=== PATIENT | female | born 1965 | race Caucasian/White ===

== ENCOUNTER → 2019-06-26 12:58 | Outpatient (CLI) | payer OTHER, SELFPAY ==
--- NOTE | 2019-06-26 13:03 | MR_ITS ---
PROCEDURE: MR HIP LT WO CON CLINICAL INDICATION: LEFT HIP PAIN COMPARISON: No exams were available for comparison TECHNIQUE: Routine multiplanar multi echo sequences are performed without gadolinium enhancement. FINDINGS: The left hip has an unremarkable appearance. No fracture or dislocation or bone marrow edema. No evidence of avascular necrosis. No significant effusion. No bony destructive process or significant arthritic change. No obvious soft tissue mass. Unremarkable appearing anterior labrum IMPRESSION: Negative MRI of the left hip Dictated by: Benjamin Granados MD 06/29/2019 12:55 Electronically signed by Benjamin Granados MD in [place] 06/29/2019 12:55
== END ==
PROVIDERS: PCP Internal Medicine; Visit Provider Internal Medicine
DX: M25.552 Pain in left hip (principal)
CPT/HCPCS: 73721

== ENCOUNTER → 2019-07-22 13:01 | Outpatient (CLI) | payer OTHER, SELFPAY ==
--- NOTE | 2019-07-22 13:13 | MR_ITS ---
PROCEDURE: MR LUMBAR SPINE WO CON CLINICAL INDICATION: LOW BACK PAIN, LEFT RADICULOPATHY Low back pain, left hip and leg pain, numbness and tingling COMPARISON: None TECHNIQUE: Standard multiplanar multiecho sequences are performed without contrast. 3-D MIP and myelographic images are also rendered and reviewed FINDINGS: The spinal cord ends at the L1 level. There is normal alignment. L1-L2: There is mild bulging disc in the right foraminal and lateral aspect of the disc causing mild right lateral recess and foraminal narrowing. L2-L3: Mild bulging disc which is eccentric toward the right in the foraminal and right lateral region causing right lateral recess and mild right foraminal narrowing. There is mild degenerative disc disease at this level. L3-L4: T1 and T2 hyperintensity is present along the L3 vertebral body anteriorly measuring 1.8 cm consistent with a lipid rich hemangioma. Minimal bulging disc which is slightly eccentric toward the left with mild left lateral recess and foraminal narrowing. L4-5: Mild concentric bulging disc along with moderate facet and ligamentum hypertrophy. There is a small/6 mm rounded T2 hyperintense focus along the medial aspect of the left facet joint consistent with a small synovial cyst. This is causing moderate left lateral recess narrowing and there is moderate bilateral foraminal narrowing from the facet hypertrophy. There is transverse narrowing of the canal at this level at 7 mm. There is impingement upon the left L5 nerve root. L5-S1: There is degenerative disc disease with bulging disc and a small broad-based central disc protrusion slightly eccentric toward the right. There is mild bilateral lateral recess narrowing slightly greater on the right with moderate bilateral foraminal narrowing. No extruded herniated disc. IMPRESSION: There is mild multilevel lumbar spondylosis with bulging disc along with facet and ligamentum hypertrophy with resulting lateral recess and foraminal narrowing. Please see above for detailed description at each level. There is transverse canal stenosis at L4-5 with moderate bilateral facet hypertrophic change along with a left-sided synovial cyst causing moderate left lateral recess narrowing and impingement upon the left L5 nerve root. No extruded herniated disc evident Dictated by: Benjamin Granados MD 07/23/2019 11:32 Electronically signed by Benjamin Granados MD in [place] 07/23/2019 11:32
== END ==
PROVIDERS: PCP Internal Medicine; Visit Provider Internal Medicine
DX: M54.16 Radiculopathy, lumbar region; M54.5 Low back pain
CPT/HCPCS: 72148; 76376

== ENCOUNTER → 2019-07-24 13:00 | Outpatient (CLI) | payer OTHER, SELFPAY ==
--- NOTE | 2019-07-24 13:02 | MR_ITS ---
PROCEDURE: MR CERVICAL SPINE WO CON CLINICAL INDICATION: NECK PAIN Neck pain, right shoulder and arm pain with numbness the the the the COMPARISON: No exams were available for comparison TECHNIQUE: Standard multiplanar multiecho sequences are performed without contrast. 3-D MIP and myelographic images are also rendered and reviewed FINDINGS: There is straightening of the cervical lordosis. The cranial cervical junction has an unremarkable appearance. C2-C3: Minimal bulging disc. C3-C4: Unremarkable. C4-C5: Minimal bulging disc with a broad-based right paracentral and foraminal disc protrusion causing mild right lateral recess and foraminal narrowing. C5-C6: Degenerate disc disease with bulging disc with a small broad-based central disc protrusion abutting but not effacing the spinal cord. There is canal stenosis at 9 mm. C6-C7: Degenerate disc disease with mild bulging disc. There is mild left-sided foraminal narrowing from the bulging disc and facet hypertrophic change C7-T1: Unremarkable. IMPRESSION: 1. Mild multilevel cervical spondylosis. Please see above for detailed description at each level. 2. C4-C5: Minimal bulging disc with a broad-based right paracentral and foraminal disc protrusion causing mild right lateral recess and foraminal narrowing. 3. C5-C6: Degenerate disc disease with bulging disc with a small broad-based central disc protrusion abutting but not effacing the spinal cord. There is canal stenosis at 9 mm. 4. C6-C7: Degenerate disc disease with mild bulging disc. There is mild left-sided foraminal narrowing from the bulging disc and facet hypertrophic change 5. No extruded herniated disc apparent Dictated by: Benjamin Granados MD 07/25/2019 13:05 Electronically signed by Benjamin Granados MD in [place] 07/25/2019 13:05
== END ==
PROVIDERS: PCP Internal Medicine; Visit Provider Internal Medicine
DX: M54.2 Cervicalgia (principal)
CPT/HCPCS: 72141; 76376

== ENCOUNTER → 2020-04-16 15:19 | Outpatient (CLI) | payer OTHER, SELFPAY ==
[2020-04-18 13:00] LABS: Covid-19 Nasal PCR Sendout Lex Not Detected
== END ==
PROVIDERS: PCP Family Medicine; Visit Provider Family Medicine
DX: Z03.818 Encounter for observation for suspected exposure to other biological agents ruled out (principal)
CPT/HCPCS: U0004

== ENCOUNTER → 2021-06-16 17:50 | Outpatient (CLI) | payer MEDICARE, OTHER, SELFPAY ==
[2021-06-16 19:16] LABS: Coronavirus 19, PCR Not Detected (NotDetected); Influenza A, PCR Not Detected (NotDetected); Influenza B, PCR Not Detected (NotDetected)
== END ==
PROVIDERS: Visit Provider Nurse Practitioner
DX: Z20.822 Contact with and (suspected) exposure to COVID-19 (principal)
CPT/HCPCS: C9803; U0003; U0005

== ENCOUNTER 2021-08-27 19:22 | Emergency (ER) | payer OTHER, SELFPAY ==
[2021-08-27 19:25] VITALS: BP 172/89; PULSE 103; RESP 20; TEMP 36.8; O2SAT 98; BMI 29.9
--- NOTE | 2021-08-27 19:41 | HMH.EDUTC ---
[facility] Disposition Clinical Impression: Impetigo Contact dermatitis Qualifiers: Contact dermatitis type: unspecified Contact dermatitis trigger: unspecified trigger Qualified Code(s): L25.9 - Unspecified contact dermatitis, unspecified cause Disposition: Home, Self-Care Condition on Discharge: Good Instructions: DI for Contact Dermatitis Additional Instructions: Try to avoid contact with the offending substance, if you can identify it. Don't start the oral steroids until tomorrow. Follow up with your regular doctor. GO TO THE ER FOR ANY WORSENING SYMPTOMS OR CONCERNS Prescriptions: Mupirocin [Bactroban 2% Ointment 22gm tube] 1 applicatio TP TID 7 Days #1 gm Transmission Status: Received by [facility] cephALEXin [cephALEXin 500mg capsule] 500 mg PO Q6H 10 Days #40 cap Transmission Status: Received by [facility] Clotrimazole 1 applicatio TP BID 14 Days #15 gm Transmission Status: Received by [facility] Fluconazole [Diflucan 150mg tab] 150 mg PO ONCE #1 tab Transmission Status: Received by [facility] methylPREDNISolone [Medrol] 4 mg PO DIRECTED 6 Days #21 packet Transmission Status: Received by [facility] Referrals: Provider,Referral, MD [Primary Care Provider] - Time of Disposition: 20:22 Medical Decision Making - Medical Records Medical records reviewed: No: I reviewed the patient's medical records. - [place] Inquiry Pt receiving controlled substance: No Vital Signs: 08/27/21 19:25 08/27/21 20:19 Temperature 98.3 F 98.3 F Temperature Source Oral Pulse Rate 103 H Pulse Rate [Left Brachial] 103 H Respiratory Rate 20 20 Blood Pressure 172/89 H Blood Pressure [Left Arm] 172/89 H Blood Pressure Mean [Left Arm] 116 Blood Pressure Source [Left Arm] Automatic Cuff Blood Pressure Position [Left Arm] Sitting 02 Sat by Pulse Oximetry 98 Oxygen Delivery Method Room Air - Lab Data Lab results reviewed: Yes: I reviewed the patient's lab results. Orders (Tests/Meds): ED MEDICATIONS Discontinued Medications Generic Name Dose Route Start Last Admin Trade Name Freq PRN Reason Stop Dose Admin Ceftriaxone Sodium 1 gm 08/27/21 20:06 08/27/21 20:15 Ceftriaxone 1gm Vial IM 08/27/21 20:07 1 gm ONCE ONE Administration Lidocaine HCl 0 ml 08/27/21 20:06 08/27/21 20:15 Lidocaine 1% 5ml Pf Vial IM 08/27/21 20:07 2 ml ONCE ONE Administration Methylprednisolone Sodium Succinate 125 mg 08/27/21 20:06 08/27/21 20:15 Methylprednisolone Sod Succ 125mg Vial IM 08/27/21 20:07 125 mg ONCE ONE Administration ORDERS Category Date Time Status Wound Culture and Gram Stain Stat Micro 08/27/21 19:42 Results [facility] HPI - General Stated complaint: rash on face Time Seen by Provider: 08/27/21 19:41 - History of Present Illness Provider Complaint: She states that for the past 2 days, she has has irritation and a rash on her face. She states that it was itching and feeling very uncomfortable. Yesterday she began to have crusted areas to break out on her chin and her right cheek. She did wear make up right before her symptoms began. She rarely wears make up. She denies any fever or chills. But, she does state that the skin on her face is very uncomfortable. She is worried that she has ringworm on her face. She denies any lesions elsewhere on her and she denies any history of having ringworm. - Related Data Previous Rx's Medication Instructions Recorded Clotrimazole 1 applicatio TP BID 14 Days #15 gm 08/27/21 Fluconazole [Diflucan 150mg tab] 150 mg PO ONCE #1 tab 08/27/21 Mupirocin [Bactroban 2% Ointment 1 applicatio TP TID 7 Days #1 gm 08/27/21 22gm tube] cephALEXin [cephALEXin 500mg 500 mg PO Q6H 10 Days #40 cap 08/27/21 capsule] methylPREDNISolone [Medrol] 4 mg PO DIRECTED 6 Days #21 08/27/21 packet Allergies Allergy/AdvReac Type Severity Reaction Status Date
[2021-08-27 20:19] VITALS: BP 172/89; PULSE 103; RESP 20; TEMP 36.8; O2SAT 98
== END 2021-08-27 20:40 | disposition home or self-care (01) ==
PROVIDERS: Emergency Provider Nurse Practitioner Family
DX: L23.2 Allergic contact dermatitis due to cosmetics (principal); L01.00 Impetigo, unspecified
CPT/HCPCS: 87070; 87077; 87186; 87205; 96372; 99202; G0463

== ENCOUNTER → 2021-09-07 17:33 | Outpatient (CLI) | payer OTHER, SELFPAY ==
[2021-09-07 17:35] LABS: Coronavirus 19, PCR Not Detected (NotDetected); Influenza A, PCR Not Detected (NotDetected); Influenza B, PCR Not Detected (NotDetected)
== END ==
PROVIDERS: Visit Provider Nurse Practitioner Family
DX: Z20.822 Contact with and (suspected) exposure to COVID-19 (principal)
CPT/HCPCS: C9803; U0003; U0005

== ENCOUNTER 2021-09-24 16:02 | Emergency (ER) | payer OTHER, SELFPAY ==
[2021-09-24 16:03] VITALS: BP 163/99; PULSE 119; RESP 18; TEMP 36.6; O2SAT 98; BMI 29.1
--- NOTE | 2021-09-24 17:03 | HMH.EDGENADL ---
ED Disposition Clinical Impression: Contact dermatitis Disposition: Home, Self-Care Condition on Discharge: Fair Instructions: DI for Skin Abscess Prescriptions: cephALEXin [cephALEXin 500mg capsule] 500 mg PO Q6H 10 Days #40 cap Transmission Status: Received by [facility] Ketoconazole 1 applicatio TP DIRECTED #50 g Transmission Status: Received by [facility] methylPREDNISolone [Medrol] 4 mg PO DIRECTED 6 Days #21 packet Transmission Status: Received by [facility] Referrals: Emily Downing [Primary Care Provider] - - Critical Care Critical Care Time: No Attestation: On 09/24/21, the high probability of a clinically significant, sudden or life threatening deterioration of the following system(s) required my full and direct attention, intervention and personal management. The time I documented below is in addition to time spent performing reported procedures but includes the following listed in this critical care notation. Medical Decision Making - Medical Records Medical records reviewed: Yes: I reviewed the patient's medical records. - [place] Inquiry Pt receiving controlled substance: No T[place] was queried for this patient: No Vital Signs: 09/24/21 16:03 09/24/21 17:18 Temperature 98 F 98 F Temperature Source Oral Oral Pulse Rate 119 H Pulse Rate [Radial] 119 H Respiratory Rate 18 16 Blood Pressure 163/99 H Blood Pressure [Right Arm] 163/99 H Blood Pressure Mean [Right Arm] 120 Blood Pressure Position Sitting 02 Sat by Pulse Oximetry 98 Oxygen Delivery Method Room Air Room Air - Lab Data Lab results reviewed: Yes: I reviewed the patient's lab results. Medical Decision Narrative: Patient is a 55-year-old female with multiple psychiatric issues including depression, anxiety, PTSD on multiple medications presenting to the ED for evaluation of a rash. Patient is awake, alert. Patient has rapid speech, she is fixated on her rash. Patient believes that she has worms crawling on her skin that are causing this rash. It has been evaluated by multiple providers regarding the rash all of which have noted the patient might have a underlying behavioral, psychiatric issue. Patient states that she has been under significant distress. He members are also very distressed regarding, fixated the patient is with a rash and has been causing physical and superficial trauma from rubbing her skin so much. At this point patient does not have any suicidal ideations, homicidal ideations. Patient has been making capacity therefore cannot be placed on an involuntary hold. At this point I do not believe that any lab work is necessary. After much discussion regarding having dermatology evaluate patient's rash and along with having the patient to be evaluated by behavioral health services patient is adamant that she would like to leave. Much discussion was had with the family members patient who ultimately agreed to go or [place] where she can be evaluated by behavioral health services. Family members have agreed to take the patient. Point patient would like to be discharged. Patient is given strict return precautions and follow-up instructions. General Adult HPI - General Stated complaint: rash Time Seen by Provider: 09/24/21 17:03 Source of Information: Patient, Spouse, Relative Limitations: No Limitations - History of Present Illness HPI narrative: Patient is a 55-year-old female with past medical history of psychiatric disorders including depression, anxiety, PTSD presenting to the ED signs of a rash. Patient states that she has had a rash on her face since . Patient states that the rash has significantly worsened. Patient states that she has seen multiple providers including the urgent care provider here multiple times and has been given antibacterial ointment, antifungal ointment, steroid ointment and now Aquaphor. Patient states that the rash is gone to the poi
[2021-09-24 17:18] VITALS: BP 163/99; PULSE 119; RESP 16; TEMP 36.6; O2SAT 98
== END 2021-09-24 17:20 | disposition home or self-care (01) ==
PROVIDERS: Emergency Provider Emergency Medicine; PCP Internal Medicine
DX: L25.9 Unspecified contact dermatitis, unspecified cause (principal); F41.8 Other specified anxiety disorders; F43.12 Post-traumatic stress disorder, chronic
CPT/HCPCS: 99281

== ENCOUNTER 2023-07-31 18:52 | Inpatient (IN) | payer MEDICARE, OTHER, SELFPAY ==
[2023-07-31] VITALS (13 sets, daily range): BP systolic 128–183; BP diastolic 77–113; PULSE 84–100; RESP 15–21; TEMP 36.6; O2SAT 93–98; BMI 27.1
--- NOTE | 2023-07-31 19:00 | PC.NURSE ---
Rounded on patient; call light within reach
--- NOTE | 2023-07-31 19:31 | CT_ITS ---
PROCEDURE INFORMATION: Exam: CT Abdomen And Pelvis With Contrast Exam date and time: 07/31/2023 8:12 PM Age: 57 years old Clinical indication: Abdominal pain; Additional info: Lower abd pain and ttp TECHNIQUE: Imaging protocol: Computed tomography of the abdomen and pelvis with contrast. Radiation optimization: All CT scans at this facility use at least one of these dose optimization techniques: automated exposure control; mA and/or kV adjustment per patient size (includes targeted exams where dose is matched to clinical indication); or iterative reconstruction. Contrast material: ISOVUE; Contrast volume: 75 ml; Contrast route: IV; REPORTING DATA: Count of CT and Cardiac NM exams in prior 12 months: This patient has received 0 known CTs and 0 known cardiac nuclear medicine studies in the 12 months prior to the current study. COMPARISON: No relevant prior studies available. FINDINGS: Lungs: Minimal linear atelectasis or scarring at the left lung base. Small calcified granulomas at both lung bases. Liver: Normal liver. Gallbladder and bile ducts: A couple of questionable tiny gallstones versus polyps. No evidence of acute cholecystitis or biliary dilatation. Pancreas: Normal pancreas. No ductal dilation. Spleen: Normal spleen. No splenomegaly. Adrenal glands: Adrenal glands are normal. Kidneys and ureters: Normal kidneys. No hydronephrosis. No calculus. Stomach and bowel: Thickening of the sigmoid colon with pericolic inflammation, most consistent with acute diverticulitis. Multiple fluid-filled loops of small bowel. Appendix: No evidence of appendicitis. Intraperitoneal space: Scattered small amounts of free air, with largest collection near the sigmoid diverticulitis. Small irregular fluid collections in the pelvis, with largest pocket measuring about 4 x 4.5 cm on axial imaging, with incomplete peripheral enhancement. Vasculature: No abdominal aortic aneurysm or dissection. Portal vein and mesenteric vessels appear grossly patent. Lymph nodes: No adenopathy. Urinary bladder: Normal urinary bladder. Reproductive: Status post hysterectomy. Bones/joints: No acute osseous abnormality or evidence of osseous metastatic disease. Soft tissues: Unremarkable. IMPRESSION: 1. Thickening of the sigmoid colon with pericolic inflammation, most consistent with acute diverticulitis. As an underlying malignancy cannot be entirely excluded, a follow-up examination after a course of treatment is recommended if clinically warranted. 2. Scattered small amounts of free air, with largest collection near the sigmoid diverticulitis. Suspect perforated diverticulitis. 3. Small irregular fluid collections in the pelvis, with largest pocket measuring about 4 x 4.5 cm on axial imaging, with incomplete peripheral enhancement. While not quite a mature abscess yet, suspect that these are developing abscesses. 4. Multiple fluid-filled loops of small bowel. While not significantly distended, suspect a mild ileus related to the diverticulitis. 5. A couple of questionable tiny gallstones versus polyps. No evidence of acute cholecystitis or biliary dilatation. 6. Status post hysterectomy. 7. THIS REPORT CONTAINS FINDINGS THAT MAY BE CRITICAL TO PATIENT CARE. The findings were verbally communicated via telephone conference with Jacinda Guzmán at 9:19 PM EDT on 07/31/2023. The findings were acknowledged and understood.
--- NOTE | 2023-07-31 19:34 | HMH.EDGENADL ---
Discharge Plan Disposition Patient Disposition: Admitted Prescriptions Prescriptions: No Action cephalexin 500 MG capsule 500 mg PO Q6H 10 Days Qty: 40 0RF mupirocin 22 GM ointment 1 applicatio TP TID 7 Days Qty: 1 0RF methylprednisolone 4 MG tablets,dose pack 4 mg PO DIRECTED 6 Days Qty: 21 0RF clotrimazole 28.4 GM cream 1 applicatio TP BID 14 Days Qty: 15 0RF fluconazole 150 MG tablet 150 mg PO ONCE Qty: 1 2RF cephalexin 500 MG capsule 500 mg PO Q6H 10 Days Qty: 40 0RF methylprednisolone 4 MG tablets,dose pack 4 mg PO DIRECTED 6 Days Qty: 21 0RF ketoconazole 50 GM foam 1 applicatio TP DIRECTED Qty: 50 0RF Rx Instructions: Apply to scalp two times per week for 8 weeks. Referrals Follow up/Referrals: Provider,Referral, MD [Primary Care Provider] - See instructions Clinical Impressions Clinical Impression: Perforated diverticulum, Intra-abdominal abscess, Sepsis Instructions Patient Instructions: DI for Acute Abdominal Pain Discharge ED Provider: Jacinda Smith General Adult HPI General Chief complaint: Abdominal Pain Stated complaint: vomiting, abd pain Time Seen by Provider: 07/31/23 19:27 Mode of Arrival: Wheelchair Source of Information: Patient Limitations: No Limitations Description of Symptoms (Recalled from ER Triage Doc. by RN): Presents to ED with c/o lower abd pain as well as N/V/D x 3-4 days. Patient reports taking AZO, intermittently taking Ceflexine, milk of mag, and enema. Patient reports she thought she was constipated and that was the cause of her pain but denies any relief. Patient reports taking 800mg Ibuprofin 3 times a day. Patient does report urinary symptoms. PMH: HTN and Jose Manuel's History of Present Illness HPI narrative: Patient is a 57-year-old female brought in today for nausea vomiting abdominal pain and diarrhea over the last several days. States she has significant bilateral lower quadrant abdominal pain. She has a history of a total hysterectomy. She feels that she has had a urinary tract infection as she has had urinary urgency and difficulty with urination. She took some antibiotics that she had at home including 6 tablets of 5 mg of Keflex. She has a history of a lobectomy treated in the past due to lung cancer also has recently been diagnosed with Jose Manuel's granulomatosis and is followed by ENT and rheumatology at the [place]. She states this pain is worse than anything she had in the past. She does not know if she had a history of diverticulitis but she believes she may have. Related Data Previous Rx's Medication Instructions Recorded cephalexin 500 mg capsule 500 mg PO Q6H 10 days #40 caps 08/27/21 clotrimazole 1 % topical cream 1 applicatio TP BID 14 days ##15 08/27/21 fluconazole 150 mg tablet 150 mg PO ONCE #1 tab 08/27/21 methylprednisolone 4 mg tablets in 4 mg PO DIRECTED 6 days #21 08/27/21 a dose pack packets mupirocin 2 % topical ointment 1 applicatio TP TID 7 days ##1 08/27/21 cephalexin 500 mg capsule 500 mg PO Q6H 10 days #40 caps 09/24/21 ketoconazole 2 % topical foam 1 applicatio TP DIRECTED #50 09/24/21 grams methylprednisolone 4 mg tablets in 4 mg PO DIRECTED 6 days #21 09/24/21 a dose pack packets Allergies Allergy/AdvReac Type Severity Reaction Status Date / Time No Known Allergies Allergy Verified 07/31/23 21:35 [facility] Disclaimer: The information contained in this section may have been updated after the patient was seen, as this information can be updated by other users. Medical History (Updated 07/31/23 @ 21:43 by Jacinda Smith MD) Eosinophilic granulomatosis with polyangiitis (EGPA) Hyperlipidemia Hypertension Lung cancer Surgical History (Updated 07/31/23 @ 20:11 by Rosa Greenwood RN) H/O: hysterectomy Social History Smoking Status: Current some day smoker alcohol intake: never current occupational status: other Travel in the last 8 weeks: None
[2023-07-31 19:38] LABS: Microscopic, Urine URINE MICROSCOPIC (MICROSCOPIC)
[2023-07-31 19:39] LABS: Appearance,Urine CLEAR (Clear); Bilirubin,Urine Negative (Negative); Blood, Urine Negative (Negative); Color,Urine ORANGE (Yellow); Glucose,Urine (UA) 1+ (Negative); Ketones,Urine Negative (Negative); Leukocyte Esterase,Urine TRACE (Negative); Nitrate,Urine POSITIVE (Negative); PH,Urine 6.5 (5.0-8.5); Protein,Urine 2+ (Negative); Specific Gravity, Urine <= 1.005 (1.005-1.030); Urobilinogen,Urine >=8.0 EU/dl (0.2)
[2023-07-31 19:44] LABS: Basophils % 0.2 % (0.1-2.0); Eosinophils # 0.2 K/mm3 (0.0-0.4); Eosinophils % 0.9 % (0.1-12.0); Hemoglobin 14.9 g/dL (12.2-16.2); Lymphocytes # 1.9 K/mm3 (0.7-4.5); Lymphocytes % 10.4 % (10-50); Mean Corpuscular HGB Conc 34.6 g/dL (31.8-35.4); Mean Corpuscular Hemoglobin 29.5 pg (27.0-31.2); Mean Corpuscular Volume 85.3 fl (81-99); Mean Platelet Volume 8.3 fl (7.4-10.4); Monocytes % 5.6 % (1.7-9.3); Neutrophils # 15.1 K/mm3 (1.8-7.8); Neutrophils % 82.9 % (37.0-80.0); Platelet Count 390 K/mm3 (142-424); Red Blood Count 5.04 M/mm3 (4.20-5.40); Red Cell Distribution Width 13.3 % (11.5-17.5); White Blood Count 18.2 K/mm3 (4.8-10.8)
[2023-07-31 19:46] LABS: Chloride 96 mmol/L (98-107); MANUAL DIFFERENTIAL MANUAL DIFFERENTIAL (MANUAL DIFF); Sodium 136 mmol/L (136-145)
[2023-07-31 19:49] LABS: Alanine Aminotransferase 25 U/L (12-78); Alkaline Phosphatase 117 U/L (38-126); Aspartate Amino Transferase 40 U/L (14-36); Bilirubin,Total 1.3 mg/dl (0.2-1.3); Blood Urea Nitrogen 12 mg/dl (7-17); Calcium 9.2 mg/dl (8.4-10.2); Carbon Dioxide 33 mmol/L (22.0-30.0); Creatinine Clearance Estimated 105 mL/min (50-200); Estimated Glomerular Filt Rate 87 ml/min (>60); GFR (African American) 105 ML/MIN (>60); Glucose 128 mg/dl (74-100); Lipase 27 U/L (23-300)
[2023-07-31 19:50] LABS: Albumin/Globulin Ratio 1.1 (1.1-1.8); Globulin 3.8 g/dL (1.3-3.2); Total Protein,Serum 7.8 g/dl (6.3-8.2)
[2023-07-31 19:59] LABS: Bacteria,Urine 1+ /lpf; RBC,Urine Occasional #/hpf (0-3); Squamous Epithelial Cell,Urine 20-50 #/hpf (0-5); WBC,Urine Occasional #/hpf (0-3)
[2023-07-31 20:07] LABS: Lymphocytes % 18 % (10-50); Monocytes % 2 % (2-9); Neutrophils % 80 % (42-76); Platelet Estimate Normal; RBC Morphology Normal; Total Cells Counted 100
[2023-07-31 20:11] LABS: Lactic Acid 1.1 mmol/L (0.7-2.1)
--- NOTE | 2023-07-31 20:31 | PC.NURSE ---
Patient reports pain has not subsided. MD notified V/O for 15mg Toradol IVP
--- NOTE | 2023-07-31 20:39 | PC.NURSE ---
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 MD notified changed V/O to 1g Tylenol IV.
--- NOTE | 2023-07-31 21:23 | PC.NURSE ---
Dr Smith on phone with Dr Tse
--- NOTE | 2023-07-31 21:41 | PC.NURSE ---
on phone with hospitalist
--- NOTE | 2023-07-31 21:43 | PC.NURSE ---
notified manager of warehouse of admission
--- NOTE | 2023-07-31 22:00 | PC.NURSE ---
BS commode given to patient; call light within reach
--- NOTE | 2023-07-31 22:44 | EXP.HP ---
History of Present Illness *Admission Date: 07/31/23 *Reason for visit:: perforated diverticulum *History of present illness: 57 year old female presented to the ED for c/o abdominal pain, constipation, and dysuria for the past four days. PMHX of lung cancer, PTSD, anxiety, htn, hld, and tobacco use. She reports using two enemas over the four days with minimal relief. Her pain is in her lower abd. She reports having recent UTI via a home test and took 6 tablets of keflex at home. Her ED workup reviewed by me reveals an elevated HR above 90, leukocytosis of 18.2, hypokalemia with k 3.0, and elevated AST of 40. I reviewed her CT of her abd and it reveals acute diverticulitis with perforation, free air with large collection around the sigmoid colon, irregular fluid collection in the pelvis, and a mild ileus. The ED physician consulted General Surgery and the hospitalist team for further medical management. I admitted the pt to the step down unit. She arrives to the floor medically stable but holds the potential for decompensation. I placed a general surgery consult for the morning. [facility] Disclaimer: The information contained in this section may have been updated after the patient was seen, as this information can be updated by other users. Medical History (System 08/02/23 @ 08:59 by Fabio Gutierrez) Carpal tunnel syndrome Eosinophilic granulomatosis with polyangiitis (EGPA) Hyperlipidemia Hypertension Lung cancer TBI (traumatic brain injury) Surgical History (System 08/02/23 @ 08:59 by Fabio Gutierrez) H/O: hysterectomy History of lobectomy of lung Total knee replacement status Social History (System 08/02/23 @ 08:59 by Fabio Gutierrez) Smoking Status: Former smoker alcohol intake: never current occupational status: disabled and other Travel in the last 8 weeks: None Review of Systems *Cardiovascular Cardiovascular: Reports system reviewed and no additional complaints, except as documented *Respiratory Respiratory: Reports system reviewed and no additional complaints, except as documented *Gastrointestinal Gastrointestinal: Reports abdominal pain, Reports constipation and Reports cramping *Genitourinary Genitourinary: Reports dysuria *Musculoskeletal Musculoskeletal: Reports system reviewed and no additional complaints, except as documented *Neurologic Neurologic: Reports system reviewed and no additional complaints, except as documented Meds Home Medications and Allergies Home Medications Medication Instructions Recorded Confirmed Type atorvastatin 40 mg tablet (Lipitor) 40 mg PO DAILY 07/31/23 08/01/23 History diazepam 10 mg tablet (Valium) 10 mg PO TID 07/31/23 08/01/23 History estrone 5 mg/mL intramuscular 5 mg IM DAILY 07/31/23 08/01/23 History suspension fexofenadine 180 mg tablet 180 mg PO DAILY 07/31/23 08/01/23 History ibuprofen 800 mg tablet 800 mg PO QID 07/31/23 08/01/23 History methocarbamol 750 mg tablet 750 mg PO BID 07/31/23 08/01/23 History metoprolol tartrate 100 mg tablet 100 mg PO DAILY 07/31/23 08/01/23 History omeprazole 40 mg capsule,delayed 40 mg PO BID 07/31/23 08/01/23 History release tizanidine 4 mg tablet 4 mg PO PM 07/31/23 08/01/23 History albuterol sulfate 90 mcg/actuation 2 puff inhalation Q6H PRN 08/01/23 08/01/23 History aerosol inhaler Shortness Of Breath omega 0-bgy-itk-fish oil 1,000 mg 1 cap PO BID 08/01/23 08/01/23 History (120 mg-180 mg) capsule (Fish Oil) mupirocin 2 % topical ointment 1 applic topical QID 08/02/23 08/02/23 History New Prescriptions to Start Prescriptions: Allergies Allergy/AdvReac Type Severity Reaction Status Date / Time No Known Allergies Allergy Verified 08/02/23 08:59 Exam Data for Last 24 hours Vital signs and Labs for Last 24 Hours: Temp Pulse Resp BP Pulse Ox O2 Del Method 98 F 93 H 15 141/89 H 94 L Room Air 07/31/23 18:53 07/31/23 21:00 07/31/23 22:00 07/31/23 22:00 07/31/23 21:00
--- NOTE | 2023-07-31 22:56 | PC.NURSE ---
Patient arrived to floor via wheelchair at 22:55.
--- NOTE | 2023-07-31 23:30 | PC.NURSE ---
Pt admitted to bed 217 via WC and on RA, escorted with Rosa (daughter) and friend. Pt c/o 04/10 ABD pain and urinary frequency. RHONA Christiansen at bedside.
[2023-08-01] VITALS (8 sets, daily range): BP systolic 133–173; BP diastolic 83–97; PULSE 60–113; RESP 17–24; TEMP 36.4–36.9; O2SAT 91–98; BMI 28.8
--- NOTE | 2023-08-01 02:17 | PC.NURSE ---
Pt asked to hold off on Dan catheter insertion at this time as she is finally resting. Pt states PRN Dilaudid relieved some of pain, but still present intermittently. Offered warm towel for pain relief. Notified RHONA Christiansen, FLOOR LAYER APPRENTICE aware.
--- NOTE | 2023-08-01 03:00 | PC.NURSE ---
Notified RHONA Christiansen of missing code status. Per pt, pt wishes to be FC. Order placed.
--- NOTE | 2023-08-01 04:15 | PC.NURSE ---
0415: Administered PRN Dilaudid after pt became increasingly agitated, began crying, and unable to lie in bed. Pt reporting increased pain and asking for PRN Dilaudid 0.25 mg IVP. Upon administration, pt requiring standing at bedside to alleviate pain. Pt stated she needed to keep on track of pain medication, educated to pt frequency of PRN dose and how administration was approximately within 4 hrs of previous administration. Also explained to pt that RN assessed pain upon hourly rounding, and this was the first time pt stated she needed pain medication. Assisted pt back into bed and asked if okay to place Dan catheter as plan to prevent increased pt movement and discomfort. Pt agreed. Dan catheter insertion unsuccessful due to pain and anxiety and inability to place. Attempted multiple times to get proper placement of catheter, but no urine flashback present. At one point, Dan catheter self-removed. Pt also continued to c/o increased pain upon insertion and removal. Pt unable to void at this time and c/o frequency. Pt requested to wait for next Dan catheter insertion. During Dan insertion, pt stated Dan insertion would be better with her Valium. Explained to pt reasoning for inability to give PRN Valium so close to PRN Dilaudid, including exacerbated side effects of respiratory depression and increased risk of falls. Pt stated that her Valium should be scheduled. Explained to pt PRN and necessity for pt to ask for pain meds. Pt states that she wants it whenever [she] can have it. Attempted to explain PRN purpose again to pt, but pt continued to state she needed to have it scheduled. 0510: Pt increasing agitated, crying loudly, and screaming d/t pain. Pt tachycardic in 120's and BP increased to 139/103. Pt states she is unable o tell if her pain is increasing or if medications are ineffective. Notified RHONA Christiansen and explained PRN med issue and Dan insertion issue. MARKETING ACCOUNT EXECUTIVE stated OK to give PRN Valium now and to monitor pt. Administered PRN meds, pt visibly more relaxed and able to tolerate lying in bed.
[2023-08-01 06:29] LABS: Chloride 100 mmol/L (98-107); Potassium 3.2 mmoL/L (3.5-5.1); Sodium 135 mmol/L (136-145)
[2023-08-01 06:32] LABS: Anion Gap 9.2 mEq/L (5-15); Basophils % 0.1 % (0.1-2.0); Blood Urea Nitrogen 9 mg/dl (7-17); Calcium 7.9 mg/dl (8.4-10.2); Carbon Dioxide 29 mmol/L (22.0-30.0); Creatinine Clearance Estimated 156 mL/min (50-200); Eosinophils # 0.2 K/mm3 (0.0-0.4); Eosinophils % 1.6 % (0.1-12.0); Estimated Glomerular Filt Rate 128 ml/min (>60); GFR (African American) 154 ML/MIN (>60); Glucose 123 mg/dl (74-100); Hematocrit 36.2 % (37.0-47.0); Lymphocytes # 0.9 K/mm3 (0.7-4.5); Lymphocytes % 7.7 % (10-50); Mean Corpuscular Volume 85.3 fl (81-99); Mean Platelet Volume 8.3 fl (7.4-10.4); Monocytes % 8.4 % (1.7-9.3); Neutrophils # 9.4 K/mm3 (1.8-7.8); Neutrophils % 82.1 % (37.0-80.0); Platelet Count 321 K/mm3 (142-424); Red Blood Count 4.25 M/mm3 (4.20-5.40); Red Cell Distribution Width 13.5 % (11.5-17.5); White Blood Count 11.4 K/mm3 (4.8-10.8)
[2023-08-01 06:34] LABS: Hemoglobin 12.3 g/dL (12.2-16.2)
--- NOTE | 2023-08-01 06:51 | PC.NURSE ---
Noticed no current pending BC from ER. Called ER to verify. ER called back stating BC in lab, order to be placed.
--- NOTE | 2023-08-01 09:20 | EXP.SURG.CON ---
History of Present Illness *Admission Date: 07/31/23 *Reason for visit:: Abdominal pain *History of present illness: Asked to see this 57-year-old patient for findings of complicated diverticulitis. She presented to the emergency department yesterday evening on 07/31/2023 with some abdominal pain, dysuria, and feelings of bloating and constipation for about 4 days. She has a prior history of lung cancer, PTSD, anxiety, hypertension, hyperlipidemia, tobacco abuse, Jose Manuel's granulomatosis. She had tried to add self administer enemas with minimal relief. Locates her pain to the lower abdomen. She had taken some Keflex at home due to dysuria. She presented to the emergency department in the evening of 07/31/2023. She was found to have a leukocytosis of 18,200. She underwent CT scan of the abdomen and pelvis which revealed findings consistent with acute diverticulitis with some extraluminal air, fluid collection around the sigmoid colon and pelvis, and findings suggestive of mild small bowel ileus likely secondary to diverticulitis. ER physician had contacted general surgery and long discussion was held. Plan was made for inpatient management admission to hospitalist service with surgical consultation. She was placed on antibiotics. This morning her leukocytosis has improved to 11,000. Her pain is slightly improved. Patient states that she has previously had several colonoscopies at outside facilities. She had previously lived in [place]. She has a family history of colon cancer in her father and brother. Last colonoscopy was apparently at the [facility] about 3 to 4 years ago. [facility] Disclaimer: The information contained in this section may have been updated after the patient was seen, as this information can be updated by other users. Medical History (Updated 08/01/23 @ 00:52 by ALLA Moreira) Carpal tunnel syndrome Eosinophilic granulomatosis with polyangiitis (EGPA) Hyperlipidemia Hypertension Lung cancer TBI (traumatic brain injury) Surgical History (Updated 07/31/23 @ 23:44 by Meagan Núñez RN) H/O: hysterectomy History of lobectomy of lung Total knee replacement status Social History (Updated 07/31/23 @ 23:45 by Meagan Núñez RN) Smoking Status: Former smoker alcohol intake: never current occupational status: disabled and other Travel in the last 8 weeks: None Review of Systems *Neurologic Neurologic: Reports system reviewed and no additional complaints, except as documented Meds Home Medications and Allergies Home Medications Medication Instructions Recorded Confirmed Type atorvastatin 40 mg tablet (Lipitor) 40 mg PO DAILY 07/31/23 History diazepam 10 mg tablet (Valium) 10 mg PO TID 07/31/23 History estrone 5 mg/mL intramuscular 5 mg IM DAILY 07/31/23 History suspension fexofenadine 180 mg tablet 180 mg PO DAILY 07/31/23 History ibuprofen 800 mg tablet 800 mg PO QID 07/31/23 History methocarbamol 750 mg tablet 750 mg PO BID 07/31/23 08/01/23 History metoprolol tartrate 100 mg tablet 100 mg PO DAILY 07/31/23 History omeprazole 40 mg capsule,delayed 40 mg PO BID 07/31/23 History release tizanidine 4 mg tablet 4 mg PO PM 07/31/23 History albuterol sulfate 90 mcg/actuation 2 puff inhalation Q6H PRN 08/01/23 History aerosol inhaler Shortness Of Breath lisinopril 40 mg tablet 20 mg PO DAILY 08/01/23 History omega 9-lbs-zut-fish oil 1,000 mg 1 cap PO BID 08/01/23 History (120 mg-180 mg) capsule (Fish Oil) New Prescriptions to Start Prescriptions: Allergies Allergy/AdvReac Type Severity Reaction Status Date / Time No Known Allergies Allergy Verified 07/31/23 21:35 Exam (Inpt) Vital signs and Labs for Last 24 Hours: Temp Pulse Resp BP Pulse Ox O2 Del Method O2 Flow Rate 97.5 F L 113 H 22 154/97 H 95 Nasal Cannula 2 08/01/23 08:00 08/01/23 08:00 08/01/23 08:00 08/01/23 08:00 08/01/23 08:00 08/01/23 08:00 08/01/23 08:0
--- NOTE | 2023-08-01 13:37 | PC.NURSE ---
1219 After entering room, pt was noted to be on BSC. She stated that she fell. She also stated that she got tangled up in the wires and cords. Pt was assessed and educated on safety. No areas noted. Pt denies any discomfort from fall and denies hitting head. MD and charge nurse was notified. Pt is currently resting in bed. Daughter is at bedside. Safety measures in place. call light within reach.
--- NOTE | 2023-08-01 14:20 | PC.NURSE ---
Per MD Tse, Pt may have sips of clear liquids.
--- NOTE | 2023-08-01 14:29 | P.CONPHA_ITS ---
Pharmacy Intervention Comments: HOME MEDICATION LIST VERIFIED BEST WE COULD USING LIST FROM THE [facility] AND PT INTERVIEW
--- NOTE | 2023-08-01 14:29 | HMH.PHAINT1 ---
Pharmacy Intervention Comments: HOME MEDICATION LIST VERIFIED BEST WE COULD USING LIST FROM THE [facility] AND PT INTERVIEW
--- NOTE | 2023-08-01 16:06 | PC.NURSE ---
Pt has c/o discomfort to abdomen, back and BLE. he has had urgency with urination t/o shift. aware. New orders placed and carried out. Pt has ambulated to BSC and BR with assist x1. Safety education provided multiple times this shift. Bed safety is on.
--- NOTE | 2023-08-01 22:23 | PC.NURSE ---
Pt bladder scanned due to urgency and complaints of retention. Bladder scan showed 560ml urine. Kuldip [employer] COMMOD[employer] BUYER notified and stated to insert indwelling urinary catheter. Pt c/o anxiety related to insertion of catheter, order for 1mg Ativan IVP one time received and administered. TAWNYA Geller from ER to floor per pt family request to place cabral. Pt tolerated insertion well, no complications noted, and 500ml or urine output noted and sample sent to lab. Increased Q30min monitoring discontinued after the 8H time frame with pt noted to be stable and no falls. Bed alarm still on and Q1H rounding in place.
--- NOTE | 2023-08-01 23:14 | EXP.PN ---
Subjective *Date: 08/02/23 *Time: 08:00 Interval history: Patient was seen and evaluated at the bedside. denies chest pain, shortness of breath, nausea, vomiting, abdominal pain. Patient does not have any complaints at this time. feels better overall Exam Data for Last 24 hours Vital signs and Labs for Last 24 Hours: Temp Pulse Resp BP Pulse Ox O2 Del Method O2 Flow Rate 98.5 F 76 18 173/84 H 95 Room Air 1 08/01/23 18:32 08/01/23 18:32 08/01/23 18:32 08/01/23 18:32 08/01/23 20:00 08/01/23 21:00 08/01/23 16:00 Laboratory Results - last 24 hr 08/01/23 05:59: WBC 11.4 H D, RBC 4.25, Hgb 12.3 D, Hct 36.2 L, MCV 85.3, MCH 29.0, MCHC 34.0, RDW 13.5, Plt Count 321, MPV 8.3, Neut % (Auto) 82.1 H, Lymph % (Auto) 7.7 L, [place] % (Auto) 8.4, Eos % (Auto) 1.6, Baso % (Auto) 0.1, Neut # (Auto) 9.4 H, Lymph # (Auto) 0.9, [place] # (Auto) 1.0, Eos # (Auto) 0.2, Baso # (Auto) 0.0, Sodium 135 L, Potassium 3.2 L, Chloride 100, Carbon Dioxide 29, Anion Gap 9.2, BUN 9, Creatinine 0.50 L D, Estimated Creat Clear 156, Estimated GFR 128, Est GFR ( Amer) 154 D, Glucose 123 H, Calcium 7.9 L I & O for Last 24 hours: Intake & Output 07/29/23 07/30/23 07/31/23 08/01/23 23:59 23:59 23:59 23:59 Intake Total 1100 / 1100 Output Total 0 / 300 650 / 650 Balance 0 / 700 450 / 450 Weight 73.936 kg 78.642 kg Constitutional Constitutional: no acute distress *Routine HEENT Exam Head: Present normocephalic Eye: Present EOMI and PERRL ENT: Present mucous membranes moist *Routine Neck Exam Neck: Present supple; Absent lymphadenopathy *Routine Respiratory Exam Respiratory: Present CTA bilaterally *Routine Cardiovascular Exam Cardiovascular: Present RRR *Routine Abdominal Exam Abdominal: Present soft, normoactive bowel sounds and tenderness Comments: abdominal tenderness noted on abdomen *Routine Extremities Exam Extremities: Absent cyanosis, clubbing or edema *Routine Skin Exam Skin: Present warm; Absent rash *Routine Neurological Exam Neurological: Present alert and oriented X3 Assessment and Plan *Assessment and plan (1) UTI (urinary tract infection): Status: Acute Category: Medical Code(s): N39.0 - Urinary tract infection, site not specified (2) Smoker: Status: Acute Category: Social Hx Code(s): F17.200 - Nicotine dependence, unspecified, uncomplicated (3) PTSD (post-traumatic stress disorder): Status: Acute Category: Medical Code(s): F43.10 - Post-traumatic stress disorder, unspecified (4) Hyperlipidemia: Status: Acute Category: Medical Code(s): E78.5 - Hyperlipidemia, unspecified (5) Hypokalemia: Status: Acute Category: Medical Code(s): E87.6 - Hypokalemia (6) Hypertension: Status: Acute Category: Medical Code(s): I10 - Essential (primary) hypertension Plan Patient is a 57-year-old female who presented to hospital due to lung cancer, PTSD, hypertension hyperlipidemia tobacco use who presented to hospital due to pain in lower abdomen Assessment Diverticulitis Perforated diverticulum Intra-abdominal abscess Sepsis present on admission Urinary tract infection Hypokalemia Hypertension Hyperlipidemia PTSD Tobacco use Plan Started on IV Zosyn Pain control General surgery consulted, no plan for surgery Okay to advance diet to clear liquids Monitor and replace electrolytes Follow-up on urine culture report DVT prophylaxis- Heparin
[2023-08-02] VITALS (9 sets, daily range): BP systolic 118–175; BP diastolic 52–109; PULSE 65–92; RESP 16–20; TEMP 35.9–37.3; O2SAT 91–100; BMI 28.6
[2023-08-02 07:44] LABS: Microscopic,Cath URINE MICROSCOPIC (MICROSCOPIC)
--- NOTE | 2023-08-02 08:25 | EXP.SURG.PN ---
Subjective Patient reports: no new complaints, still having pain and pain is less Exam Data for Last 24 hours Vital signs and Labs for Last 24 Hours: Temp Pulse Resp BP Pulse Ox O2 Del Method O2 Flow Rate 98.1 F 79 17 175/99 H 91 L Room Air 1 08/02/23 07:44 08/02/23 07:44 08/02/23 07:44 08/02/23 07:44 08/02/23 07:44 08/02/23 07:44 08/01/23 16:00 I & O for Last 24 hours: Intake & Output 07/30/23 07/31/23 08/01/23 08/02/23 11:59 11:59 11:59 11:59 Intake Total 1000 / 1000 2212 / 2212 Output Total 400 / 400 2162 / 2162 Balance 600 / 600 50 / 50 Weight 173 lb 6 oz 171 lb 15.051 oz Constitutional Constitutional: no acute distress *Routine Respiratory Exam Respiratory: Absent respiratory distress *Routine Cardiovascular Exam Cardiovascular: Absent tachycardia *Routine Abdominal Exam Abdominal: Present tenderness (The patient remains tender globally; however, she claims that this is improved ) Progress Note: A&P Assessment and plan (1) Diverticulitis of intestine, part unspecified, with perforation and abscess without bleeding: Status: Acute Assessment and plan: Continue Zosyn for now Clear liquids Follow-up a.m. labs
[2023-08-02 08:48] LABS: Basophils % 0.2 % (0.1-2.0); Eosinophils # 0.3 K/mm3 (0.0-0.4); Eosinophils % 2.9 % (0.1-12.0); Hematocrit 37.1 % (37.0-47.0); Hemoglobin 12.7 g/dL (12.2-16.2); Lymphocytes # 1.6 K/mm3 (0.7-4.5); Lymphocytes % 14.2 % (10-50); Mean Corpuscular HGB Conc 34.4 g/dL (31.8-35.4); Mean Corpuscular Hemoglobin 29.4 pg (27.0-31.2); Mean Corpuscular Volume 85.6 fl (81-99); Mean Platelet Volume 8.1 fl (7.4-10.4); Monocytes % 8.8 % (1.7-9.3); Neutrophils # 8.1 K/mm3 (1.8-7.8); Neutrophils % 73.8 % (37.0-80.0); Platelet Count 356 K/mm3 (142-424); Red Blood Count 4.33 M/mm3 (4.20-5.40); Red Cell Distribution Width 13.5 % (11.5-17.5)
[2023-08-02 09:00] LABS: Appearance,Urine/Cath CLEAR (Clear); Bilirubin,Cath Negative (Negative); Blood, Urine/Cath Negative (Negative); Color,Urine/Cath ORANGE (Yellow); Glucose,Urine/Cath (UA) TRACE (Negative); Ketones,Urine/Cath Negative (Negative); Leukocyte Esterase,Cath Negative (Negative); Nitrate,Cath POSITIVE (Negative); Protein,Urine/Cath 1+ (Negative); Specific Gravity, Urine/Cath <= 1.005 (1.005-1.030)
[2023-08-02 09:03] LABS: Anion Gap 9.3 mEq/L (5-15); Blood Urea Nitrogen 4 mg/dl (7-17); Calcium 8.5 mg/dl (8.4-10.2); Carbon Dioxide 31 mmol/L (22.0-30.0); Chloride 97 mmol/L (98-107); Creatinine Clearance Estimated 129 mL/min (50-200); Estimated Glomerular Filt Rate 103 ml/min (>60); GFR (African American) 125 ML/MIN (>60); Glucose 104 mg/dl (74-100); Potassium 3.3 mmoL/L (3.5-5.1); Sodium 134 mmol/L (136-145)
[2023-08-02 09:41] LABS: Bacteria,Urine/Cath TRACE /lpf; WBC,Urine/Cath Occasional #/hpf (0-3)
--- NOTE | 2023-08-02 11:58 | PC.NURSE ---
1155 pt ambulating in hallway with staff at this time.
--- NOTE | 2023-08-02 15:31 | PC.NURSE ---
Addendum entered by Charlene Cantrell RN 08/02/23 15:39: pt has ambulated in the hallway twice so far this shift. Original Note: multiple times this shift, pt has stated several times that she is frustrated with staff remaining in the room while she is using the bsc/bathroom. educated pt that r/t her fall the previous day that policy states pt is to have a bed safety device in place and that staff is to remain with pt while up to the bsc/br. pt states that she only fell because she got tangled up in the cords. pt also voiced to staff that she feels overwhelmed and her PTSD is triggered when numerous people are in her face . pt triggers discussed with other primary staff, when responding to bed safety or providing care minimal staff to remain present in room. pt appears a/o x 4, lungs are clear, bowel sounds are active. pt has had numerous small liquid brown bm this shift. pt has cabral catheter in place as well.
--- NOTE | 2023-08-02 17:47 | PC.NURSE ---
[address] Gill in reference to patient request. pt requests home mupirocin ointment be reordered. states she uses it 4x a day intranasally for wegeners granulomatosis. per Dr Gill, ok to order pt home mupirocin.
--- NOTE | 2023-08-02 18:38 | EXP.PN ---
Subjective *Date: 08/02/23 *Time: 18:38 Interval history: Patient was seen and evaluated at the bedside. denies chest pain, shortness of breath, nausea, vomiting, abdominal pain. Patient does not have any complaints at this time. feels better overall. she mentions she feels hungry and would like to eat Exam Data for Last 24 hours Vital signs and Labs for Last 24 Hours: Temp Pulse Resp BP Pulse Ox O2 Del Method O2 Flow Rate 99.1 F 80 20 166/109 H 94 L Room Air 1 08/02/23 15:24 08/02/23 16:00 08/02/23 15:24 08/02/23 15:24 08/02/23 15:24 08/02/23 17:00 08/01/23 16:00 Laboratory Results - last 24 hr 08/01/23 21:05: Urine Color [place], Urine Appearance Clear, Urine pH 6.0, Ur Specific [place] <= 1.005, Urine Protein 1+, Urine Glucose (UA) Trace, Urine Ketones Negative, Urine Blood Negative, Urine Nitrate Positive, Urine Bilirubin Negative, Urine Urobilinogen 2.0, Ur Leukocyte Esterase Negative, Urine RBC None, Urine WBC Occasional, Ur Squamous Epith Cells 3-5, Urine Bacteria Trace 08/02/23 08:36: WBC 11.0 H, RBC 4.33, Hgb 12.7, Hct 37.1, MCV 85.6, MCH 29.4, MCHC 34.4, RDW 13.5, Plt Count 356, MPV 8.1, Neut % (Auto) 73.8, Lymph % (Auto) 14.2, [place] % (Auto) 8.8, Eos % (Auto) 2.9, Baso % (Auto) 0.2, Neut # (Auto) 8.1 H, Lymph # (Auto) 1.6, [place] # (Auto) 1.0, Eos # (Auto) 0.3, Baso # (Auto) 0.0, Sodium 134 L, Potassium 3.3 L, Chloride 97 L, Carbon Dioxide 31 H, Anion Gap 9.3, BUN 4 L D, Creatinine 0.60, Estimated Creat Clear 129, Estimated GFR 103, Est GFR ( Amer) 125, Glucose 104 H, Calcium 8.5 I & O for Last 24 hours: Intake & Output 07/30/23 07/31/23 08/01/23 08/02/23 23:59 23:59 23:59 23:59 Intake Total 1100 / 1100 5344 / 5344 Output Total 0 / 300 650 / 650 2812 / 2812 Balance 0 / 700 450 / 450 2532 / 2532 Weight 73.936 kg 78.642 kg 77.991 kg Constitutional Constitutional: no acute distress *Routine HEENT Exam Head: Present normocephalic Eye: Present EOMI and PERRL ENT: Present mucous membranes moist *Routine Neck Exam Neck: Present supple; Absent lymphadenopathy *Routine Respiratory Exam Respiratory: Present CTA bilaterally *Routine Cardiovascular Exam Cardiovascular: Present RRR *Routine Abdominal Exam Abdominal: Present soft and normoactive bowel sounds; Absent tenderness *Routine Extremities Exam Extremities: Absent cyanosis, clubbing or edema *Routine Skin Exam Skin: Present warm; Absent rash *Routine Neurological Exam Neurological: Present alert and oriented X3 Assessment and Plan *Assessment and plan (1) UTI (urinary tract infection): Status: Acute Category: Medical Code(s): N39.0 - Urinary tract infection, site not specified (2) Smoker: Status: Acute Category: Social Hx Code(s): F17.200 - Nicotine dependence, unspecified, uncomplicated (3) PTSD (post-traumatic stress disorder): Status: Acute Category: Medical Code(s): F43.10 - Post-traumatic stress disorder, unspecified (4) Hyperlipidemia: Status: Acute Category: Medical Code(s): E78.5 - Hyperlipidemia, unspecified (5) Hypokalemia: Status: Acute Category: Medical Code(s): E87.6 - Hypokalemia (6) Hypertension: Status: Acute Category: Medical Code(s): I10 - Essential (primary) hypertension Plan Patient is a 57-year-old female who presented to hospital due to lung cancer, PTSD, hypertension hyperlipidemia tobacco use who presented to hospital due to pain in lower abdomen Assessment Diverticulitis Perforated diverticulum Intra-abdominal abscess Sepsis present on admission Urinary tract infection Hypokalemia Hypertension Hyperlipidemia PTSD Tobacco use Plan Started on IV Zosyn, advance diet as tolerated, no plan for surgical [id number] per GS at this time Pain control General surgery consulted and following Okay to advance diet to clear liquids Monitor and replace electrolytes Follow-up on ur
[2023-08-03] VITALS (7 sets, daily range): BP systolic 150–177; BP diastolic 70–98; PULSE 62–100; RESP 16–18; TEMP 36.6–36.9; O2SAT 94–100; BMI 28.6
--- NOTE | 2023-08-03 04:25 | PC.NURSE ---
Pt is alert and oriented x4, Pt has complained and cried of severe pain for the most part of the shift. Pt insisted on walking around the unit and stated she was restless and itchy nurse x2 assisted pt to walk around unit. Pt took shower and admitted she felt better, Pt is resting at this time and has no complaints.
[2023-08-03 06:26] LABS: Basophils % 0.2 % (0.1-2.0); Eosinophils # 0.2 K/mm3 (0.0-0.4); Eosinophils % 1.5 % (0.1-12.0); Hematocrit 35.6 % (37.0-47.0); Hemoglobin 12.2 g/dL (12.2-16.2); Lymphocytes # 1.8 K/mm3 (0.7-4.5); Lymphocytes % 12.7 % (10-50); Mean Corpuscular HGB Conc 34.2 g/dL (31.8-35.4); Mean Corpuscular Hemoglobin 29.3 pg (27.0-31.2); Mean Corpuscular Volume 85.6 fl (81-99); Mean Platelet Volume 8.2 fl (7.4-10.4); Monocytes # 1.3 K/mm3 (0.1-1.0); Monocytes % 9.2 % (1.7-9.3); Neutrophils # 10.8 K/mm3 (1.8-7.8); Neutrophils % 76.3 % (37.0-80.0); Platelet Count 376 K/mm3 (142-424); Red Blood Count 4.17 M/mm3 (4.20-5.40); Red Cell Distribution Width 13.2 % (11.5-17.5); White Blood Count 14.2 K/mm3 (4.8-10.8)
[2023-08-03 06:31] LABS: Blood Urea Nitrogen 3 mg/dl (7-17); Calcium 8.3 mg/dl (8.4-10.2); Carbon Dioxide 33 mmol/L (22.0-30.0); Chloride 96 mmol/L (98-107); Creatinine Clearance Estimated 129 mL/min (50-200); Estimated Glomerular Filt Rate 103 ml/min (>60); GFR (African American) 125 ML/MIN (>60); Glucose 108 mg/dl (74-100); Sodium 136 mmol/L (136-145)
--- NOTE | 2023-08-03 09:33 | CT_ITS ---
FINAL REPORT CLINICAL HISTORY: progression of perforation COMPARISON: 07/31/2023 FINDINGS: Axial CT images of the abdomen and pelvis were obtained without intravenous contrast. Coronal reformatted images were also obtained.This study was performed with techniques to keep radiation doses as low as reasonably achievable (ALARA). Individualized dose reduction techniques using automated exposure control or adjustment of mA and/or kV according to the patient''s size were employed. Abdomen: There is a small left pleural effusion. There is mild left lower lobe atelectasis. Small gallstones are noted. There is mild gallbladder wall thickening which is nonspecific. There is a small amount of ascites. The liver, spleen and pancreas have an unremarkable, unenhanced appearance. There are moderate vascular calcifications. Pelvis: There are multiple air and fluid-filled bowel loops. There are inflammatory changes in the lower pelvis. Sigmoid diverticula are noted with inflammatory changes consistent with sigmoid diverticulitis. There is a collection of air anterior to the sigmoid colon which is larger, now measuring 19 mm, consistent with a localized perforation. There is a fluid collection in the lower pelvis measuring 5.5 x 4 cm which is somewhat larger than prior. This likely represents reactive fluid versus early abscess. There is wall thickening of small bowel loops in the pelvis, likely secondary to inflammation. Wall thickening is noted of the bladder, likely inflammatory. Dan catheter is present. IMPRESSION: Persistent findings of perforated sigmoid diverticulitis. Slightly increased pelvic fluid collection worrisome for early abscess. Overall, slightly worse inflammatory changes in the pelvis. Reviewed, Interpreted and Dictated by Cristopher Pike III, MD Transcribed by Duyen Hummel Authenticated and [facility]
--- NOTE | 2023-08-03 12:16 | PC.NURSE ---
pt has ambulated in [place] with staff 2 times so far this shift.
--- NOTE | 2023-08-03 14:56 | EXP.SURG.PN ---
Subjective Narrative: Patient had Dan catheter removed at her request. However she describes urinary retention. She has lower pelvic pain which she attributes to urinary retention. History and assessment is somewhat difficult and challenging. Due to persistent leukocytosis and questionable ongoing pain she underwent apparently a repeat CT scan today. This was noncontrast CT scan. It is reveals findings of persistent sigmoid diverticulitis with slight increase fluid collection. Exam Data for Last 24 hours Vital signs and Labs for Last 24 Hours: Temp Pulse Resp BP Pulse Ox O2 Del Method O2 Flow Rate 98.5 F 98 H 18 151/96 H 94 L Room Air 1 08/03/23 07:40 08/03/23 08:00 08/03/23 07:40 08/03/23 07:40 08/03/23 08:00 08/03/23 11:15 08/01/23 16:00 Laboratory Results - last 24 hr 08/03/23 05:59: WBC 14.2 H D, RBC 4.17 L, Hgb 12.2, Hct 35.6 L, MCV 85.6, MCH 29.3, MCHC 34.2, RDW 13.2, Plt Count 376, MPV 8.2, Neut % (Auto) 76.3, Lymph % (Auto) 12.7, [place] % (Auto) 9.2, Eos % (Auto) 1.5, Baso % (Auto) 0.2, Neut # (Auto) 10.8 H, Lymph # (Auto) 1.8, [place] # (Auto) 1.3 H, Eos # (Auto) 0.2, Baso # (Auto) 0.0, Sodium 136, Potassium 3.0 L, Chloride 96 L, Carbon Dioxide 33 H, Anion Gap 10.0, BUN 3 L, Creatinine 0.60, Estimated Creat Clear 129, Estimated GFR 103, Est GFR ( Amer) 125, Glucose 108 H, Calcium 8.3 L I & O for Last 24 hours: Intake & Output 08/01/23 08/02/23 08/03/23 08/04/23 11:59 11:59 11:59 11:59 Intake Total 1000 / 1000 2212 / 2212 3952 / 3952 0 / 0 Output Total 400 / 400 2162 / 2162 5800 / 5800 Balance 600 / 600 50 / 50 -1848 / -1848 0 / 0 Weight 173 lb 6 oz 171 lb 15.051 oz 171 lb 15.051 oz *Routine Abdominal Exam Abdominal: Present soft and tenderness Progress Note: A&P Assessment and plan (1) Perforated diverticulum: Status: Deleted Assessment and plan: CT scan shows potentially some slight worsening. However, this was done without contrast and this is early interval follow-up. There is concern given patient's persistent symptoms of pain that she could require surgical intervention. However, patient assessment is challenging. I will see if she has some relief with replacement of Dan catheter once again. I will add Invanz to antibiotic regimen. Could benefit from Toradol. If no significant improvement may need laparotomy with sigmoid resection and creation of end colostomy as Chong's procedure. (2) Intra-abdominal abscess: Status: Acute (3) Sepsis: Status: Acute (4) UTI (urinary tract infection): Status: Acute (5) Hypokalemia: Status: Acute (6) Hyperlipidemia: Status: Acute (7) Hypertension: Status: Acute (8) Granulomatosis with polyangiitis: Status: Acute (9) PTSD (post-traumatic stress disorder): Status: Acute (10) Smoker: Status: Acute
--- NOTE | 2023-08-03 15:41 | PC.NURSE ---
[address] Gill order. if pt has not voided at 6 hrs, bladder scan pt and i/o cath pt if residual noted. 1130 pt catheter removed, pt up several times this shift, unable to void. 1448 bladder scan performed, 349 ml. pt insistent that cabral cath be reinserted. notified of pt request. per ok to reinsert cabral. 16fr cabral inserted at 1500
--- NOTE | 2023-08-03 16:08 | PC.NURSE ---
1600 per cynthia damon for pt to have a clear liquid diet, no carbonation. will reassess pt possible surgical status in am.
--- NOTE | 2023-08-03 17:49 | EXP.PN ---
Subjective *Date: 08/03/23 *Time: 17:49 Interval history: Patient was seen and evaluated at the bedside. denies chest pain, shortness of breath, nausea, vomiting, abdominal pain. Patient does not have any complaints at this time. feels better overall and asking to be started on regular diet. she mentions she feels hungry Exam Data for Last 24 hours Vital signs and Labs for Last 24 Hours: Temp Pulse Resp BP Pulse Ox O2 Del Method O2 Flow Rate 98.5 F 79 18 151/96 H 94 L Room Air 1 08/03/23 07:40 08/03/23 16:00 08/03/23 07:40 08/03/23 07:40 08/03/23 08:00 08/03/23 15:00 08/01/23 16:00 Laboratory Results - last 24 hr 08/03/23 05:59: WBC 14.2 H D, RBC 4.17 L, Hgb 12.2, Hct 35.6 L, MCV 85.6, MCH 29.3, MCHC 34.2, RDW 13.2, Plt Count 376, MPV 8.2, Neut % (Auto) 76.3, Lymph % (Auto) 12.7, [place] % (Auto) 9.2, Eos % (Auto) 1.5, Baso % (Auto) 0.2, Neut # (Auto) 10.8 H, Lymph # (Auto) 1.8, [place] # (Auto) 1.3 H, Eos # (Auto) 0.2, Baso # (Auto) 0.0, Sodium 136, Potassium 3.0 L, Chloride 96 L, Carbon Dioxide 33 H, Anion Gap 10.0, BUN 3 L, Creatinine 0.60, Estimated Creat Clear 129, Estimated GFR 103, Est GFR ( Amer) 125, Glucose 108 H, Calcium 8.3 L Temp Pulse Resp BP Pulse Ox O2 Del Method O2 Flow Rate 98.5 F 98 H 18 151/96 H 94 L Room Air 1 08/03/23 07:40 08/03/23 08:00 08/03/23 07:40 08/03/23 07:40 08/03/23 08:00 08/03/23 11:15 08/01/23 16:00 Laboratory Results - last 24 hr 08/03/23 05:59: WBC 14.2 H D, RBC 4.17 L, Hgb 12.2, Hct 35.6 L, MCV 85.6, MCH 29.3, MCHC 34.2, RDW 13.2, Plt Count 376, MPV 8.2, Neut % (Auto) 76.3, Lymph % (Auto) 12.7, [place] % (Auto) 9.2, Eos % (Auto) 1.5, Baso % (Auto) 0.2, Neut # (Auto) 10.8 H, Lymph # (Auto) 1.8, [place] # (Auto) 1.3 H, Eos # (Auto) 0.2, Baso # (Auto) 0.0, Sodium 136, Potassium 3.0 L, Chloride 96 L, Carbon Dioxide 33 H, Anion Gap 10.0, BUN 3 L, Creatinine 0.60, Estimated Creat Clear 129, Estimated GFR 103, Est GFR ( Amer) 125, Glucose 108 H, Calcium 8.3 L I & O for Last 24 hours: Intake & Output 07/31/23 08/01/23 08/02/23 08/03/23 23:59 23:59 23:59 23:59 Intake Total 1100 / 1100 5344 / 5584 990 / 990 Output Total 0 / 300 650 / 650 2812 / 5012 5400 / 5400 Balance 0 / 700 450 / 450 2532 / 572 -4410 / -4410 Weight 73.936 kg 78.642 kg 77.991 kg 77.991 kg Intake & Output 08/01/23 08/02/23 08/03/23 08/04/23 11:59 11:59 11:59 11:59 Intake Total 1000 / 1000 2212 / 2212 3952 / 3952 0 / 0 Output Total 400 / 400 2162 / 2162 5800 / 5800 Balance 600 / 600 50 / 50 -1848 / -1848 0 / 0 Weight 173 lb 6 oz 171 lb 15.051 oz 171 lb 15.051 oz *Routine Abdominal Exam Abdominal: Present soft and tenderness (generalized) Detailed Abdominal Exam Comments: tenderness noted Assessment and Plan *Assessment and plan (1) UTI (urinary tract infection): Status: Acute Category: Medical Code(s): N39.0 - Urinary tract infection, site not specified (2) Smoker: Status: Acute Category: Social Hx Code(s): F17.200 - Nicotine dependence, unspecified, uncomplicated (3) PTSD (post-traumatic stress disorder): Status: Acute Category: Medical Code(s): F43.10 - Post-traumatic stress disorder, unspecified (4) Hyperlipidemia: Status: Acute Category: Medical Code(s): E78.5 - Hyperlipidemia, unspecified (5) Hypokalemia: Status: Acute Category: Medical Code(s): E87.6 - Hypokalemia (6) Hypertension: Status: Acute Category: Medical Code(s): I10 - Essential (primary) hypertension Plan Patient is a 57-year-old female who presented to hospital due to lung cancer, PTSD, hypertension hyperlipidemia tobacco use who presented to hospital due to pain in lower abdomen Assessment Diverticulitis Perforated diverticulum Intra-abdominal abscess Sepsis present on admission Urinary tract infection Hypokalemia Hypertension Hyperlipidemia PTSD Tobacco use Pl
--- NOTE | 2023-08-03 18:50 | PC.NURSE ---
patient went to the restroom with RN assistance
--- NOTE | 2023-08-03 19:58 | PC.NURSE ---
Pt ambulated around unit 6x per request with standby assist for safety.
[2023-08-04] VITALS: BP 133/54; PULSE 65; PULSE 77; RESP 16; TEMP 36.6; O2SAT 95
[2023-08-04 04:00] VITALS: BP 145/59; PULSE 88; PULSE 92; RESP 16; TEMP 36.7; O2SAT 98; BMI 28.6
--- NOTE | 2023-08-04 05:46 | PC.NURSE ---
Patient has been up and down from the bathroom all night. Has had numerous bowel movements all have been liquid. Did have one instance of not being able to make it to the bathroom. Patient has walked multiple laps in the hallway through the night. Patient is extremely anxious about getting the results of her exam from yesterday. RN told patient that the doctor will be around today to give her those results. Patient is still in pain but states it is getting better and that her belly is not as firm as it was when she came in. Remains with the cabral as the patient states she is having retention issues. No other issues noted by patient
--- NOTE | 2023-08-04 06:21 | EXP.SURG.PN ---
Subjective Narrative: According to nursing patient has had less firmness in her abdomen with some improved pain and slept well. She has asked repeatedly about the CT scan results. She did have Dan catheter replaced. She has had too numerous to count loose stools overnight. Exam Data for Last 24 hours Vital signs and Labs for Last 24 Hours: Temp Pulse Resp BP Pulse Ox O2 Del Method O2 Flow Rate 98.1 F 92 H 16 145/59 H 98 Room Air 1 08/04/23 04:00 08/04/23 04:00 08/04/23 04:00 08/04/23 04:00 08/04/23 04:00 08/04/23 05:00 08/01/23 16:00 Laboratory Results - last 24 hr 08/03/23 05:59: WBC 14.2 H D, RBC 4.17 L, Hgb 12.2, Hct 35.6 L, MCV 85.6, MCH 29.3, MCHC 34.2, RDW 13.2, Plt Count 376, MPV 8.2, Neut % (Auto) 76.3, Lymph % (Auto) 12.7, [place] % (Auto) 9.2, Eos % (Auto) 1.5, Baso % (Auto) 0.2, Neut # (Auto) 10.8 H, Lymph # (Auto) 1.8, [place] # (Auto) 1.3 H, Eos # (Auto) 0.2, Baso # (Auto) 0.0, Sodium 136, Potassium 3.0 L, Chloride 96 L, Carbon Dioxide 33 H, Anion Gap 10.0, BUN 3 L, Creatinine 0.60, Estimated Creat Clear 129, Estimated GFR 103, Est GFR ( Amer) 125, Glucose 108 H, Calcium 8.3 L I & O for Last 24 hours: Intake & Output 08/01/23 08/02/23 08/03/23 08/04/23 11:59 11:59 11:59 11:59 Intake Total 1000 / 1000 2212 / 2212 3952 / 3952 770 / 770 Output Total 400 / 400 2162 / 2162 5800 / 5800 4200 / 4200 Balance 600 / 600 50 / 50 -1848 / -1848 -3430 / -3430 Weight 173 lb 6 oz 171 lb 15.051 oz 171 lb 15.051 oz 171 lb 15.051 oz Progress Note: A&P Assessment and plan (1) UTI (urinary tract infection): Status: Acute (2) Smoker: Status: Acute (3) PTSD (post-traumatic stress disorder): Status: Acute (4) Hyperlipidemia: Status: Acute (5) Hypokalemia: Status: Acute (6) Hypertension: Status: Acute Assessment and Plan Assessment and Plan for All Diagnoses:: Regarding her diverticulitis her noncontrast CT scan was relatively unchanged potentially showing slight increase in fluid and inflammatory changes. She was switched from Zosyn to Invanz due to lack of definite improvement on Zosyn. Labs pending this morning.
[2023-08-04 06:25] LABS: Anion Gap 10.9 mEq/L (5-15); Blood Urea Nitrogen 2 mg/dl (7-17); Calcium 8.3 mg/dl (8.4-10.2); Carbon Dioxide 31 mmol/L (22.0-30.0); Chloride 98 mmol/L (98-107); Creatinine Clearance Estimated 155 mL/min (50-200); Estimated Glomerular Filt Rate 128 ml/min (>60); GFR (African American) 154 ML/MIN (>60); Glucose 118 mg/dl (74-100); Sodium 137 mmol/L (136-145)
[2023-08-04 06:46] LABS: Basophils % 0.2 % (0.1-2.0); Eosinophils # 0.2 K/mm3 (0.0-0.4); Eosinophils % 2.4 % (0.1-12.0); Hematocrit 35.4 % (37.0-47.0); Lymphocytes # 1.3 K/mm3 (0.7-4.5); Lymphocytes % 12.5 % (10-50); Mean Corpuscular HGB Conc 33.9 g/dL (31.8-35.4); Mean Corpuscular Hemoglobin 28.9 pg (27.0-31.2); Mean Corpuscular Volume 85.2 fl (81-99); Mean Platelet Volume 8.1 fl (7.4-10.4); Monocytes # 0.9 K/mm3 (0.1-1.0); Monocytes % 9.2 % (1.7-9.3); Neutrophils # 7.7 K/mm3 (1.8-7.8); Neutrophils % 75.7 % (37.0-80.0); Platelet Count 405 K/mm3 (142-424); Red Blood Count 4.15 M/mm3 (4.20-5.40); Red Cell Distribution Width 13.4 % (11.5-17.5); White Blood Count 10.2 K/mm3 (4.8-10.8)
[2023-08-04 06:56] LABS: Potassium 2.9 mmoL/L (3.5-5.1)
[2023-08-04 08:00] VITALS: BP 160/117; PULSE 95; PULSE 96; RESP 18; TEMP 37.1; O2SAT 96
--- NOTE | 2023-08-04 08:36 | PC.NURSE ---
primary tech note: nurse notified about 0800 vital signs
--- NOTE | 2023-08-04 09:05 | PC.NURSE ---
COURTESY TECH NOTE; ROUNDED ON PT 0825, PT DENIED NEED FOR DRINK, ASSISTANCE WITH RESTROOM, AND NEED TO REPOSITION IN BED. CALL LIGHT WITHIN REACH, NO FURTHER REQUESTS AT THIS TIME MARIA G WATSON
[2023-08-04 10:37] LABS: Microscopic, Urine URINE MICROSCOPIC (MICROSCOPIC)
[2023-08-04 10:43] LABS: Appearance,Urine CLEAR (Clear); Bilirubin,Urine Negative (Negative); Blood, Urine 1+ (Negative); Color,Urine YELLOW (Yellow); Glucose,Urine (UA) Negative (Negative); Ketones,Urine Negative (Negative); Leukocyte Esterase,Urine Negative (Negative); Nitrate,Urine POSITIVE (Negative); Protein,Urine Negative (Negative); Specific Gravity, Urine 1.015 (1.005-1.030); Urobilinogen,Urine 0.2 EU/dl (0.2)
[2023-08-04 11:01] LABS: Bacteria,Urine 1+ /lpf; Renal Epithelial Cells,Urine Occasional #/lpf (0)
--- NOTE | 2023-08-04 11:04 | PC.NURSE ---
TECH NOTE; PT AMBULATED THE LENGTH OF HALLWAY FIVE TIMES X1 ASSIST. ACTIVITY TOLERATED WELL Neva DIAZ, SRNA
[2023-08-04 12:00] VITALS: BP 173/89; PULSE 58; PULSE 61; RESP 18; TEMP 37.1; O2SAT 98
--- NOTE | 2023-08-04 13:13 | SW/DCPLANNER ---
Per Registration staff (Harry Gonzalez) patient refused x2 to sign Medicare Right's Letter.
[2023-08-04 16:00] VITALS: BP 147/104; PULSE 68; PULSE 70; RESP 18; TEMP 36.7; O2SAT 95
--- NOTE | 2023-08-04 16:05 | EXP.PN ---
Subjective *Date: 08/04/23 *Time: 16:05 Interval history: Patient was seen and evaluated at the bedside. abdominal pain is better, denies chest pain, shortness of breath. feels better overall and asking to be started on regular diet. she mentions she feels hungry Exam Data for Last 24 hours Vital signs and Labs for Last 24 Hours: Temp Pulse Resp BP Pulse Ox O2 Del Method O2 Flow Rate 98.8 F 58 L 18 173/89 H 98 Room Air 1 08/04/23 12:00 08/04/23 12:00 08/04/23 12:00 08/04/23 12:00 08/04/23 12:00 08/04/23 12:00 08/01/23 16:00 Laboratory Results - last 24 hr 08/04/23 05:42: WBC 10.2 D, RBC 4.15 L, Hgb 12.0 L, Hct 35.4 L, MCV 85.2, MCH 28.9, MCHC 33.9, RDW 13.4, Plt Count 405, MPV 8.1, Neut % (Auto) 75.7, Lymph % (Auto) 12.5, [place] % (Auto) 9.2, Eos % (Auto) 2.4, Baso % (Auto) 0.2, Neut # (Auto) 7.7, Lymph # (Auto) 1.3, [place] # (Auto) 0.9, Eos # (Auto) 0.2, Baso # (Auto) 0.0, Sodium 137, Potassium 2.9 L*, Chloride 98, Carbon Dioxide 31 H, Anion Gap 10.9, BUN 2 L D, Creatinine 0.50 L, Estimated Creat Clear 155, Estimated GFR 128, Est GFR ( Amer) 154 D, Glucose 118 H, Calcium 8.3 L 08/04/23 08:21: Urine Color Yellow, Urine Appearance Clear, Urine pH 8.0, Ur Specific [place] 1.015, Urine Protein Negative, Urine Glucose (UA) Negative, Urine Ketones Negative, Urine Blood 1+, Urine Nitrate Positive, Urine Bilirubin Negative, Urine Urobilinogen 0.2, Ur Leukocyte Esterase Negative, Urine RBC 5-10, Urine WBC None, Ur Squamous Epith Cells 3-5, Ur Renal Epithelial Cell Occasional, Urine Bacteria 1+ Temp Pulse Resp BP Pulse Ox O2 Del Method O2 Flow Rate 98.5 F 98 H 18 151/96 H 94 L Room Air 1 08/03/23 07:40 08/03/23 08:00 08/03/23 07:40 08/03/23 07:40 08/03/23 08:00 08/03/23 11:15 08/01/23 16:00 Laboratory Results - last 24 hr 08/03/23 05:59: WBC 14.2 H D, RBC 4.17 L, Hgb 12.2, Hct 35.6 L, MCV 85.6, MCH 29.3, MCHC 34.2, RDW 13.2, Plt Count 376, MPV 8.2, Neut % (Auto) 76.3, Lymph % (Auto) 12.7, [place] % (Auto) 9.2, Eos % (Auto) 1.5, Baso % (Auto) 0.2, Neut # (Auto) 10.8 H, Lymph # (Auto) 1.8, [place] # (Auto) 1.3 H, Eos # (Auto) 0.2, Baso # (Auto) 0.0, Sodium 136, Potassium 3.0 L, Chloride 96 L, Carbon Dioxide 33 H, Anion Gap 10.0, BUN 3 L, Creatinine 0.60, Estimated Creat Clear 129, Estimated GFR 103, Est GFR ( Amer) 125, Glucose 108 H, Calcium 8.3 L I & O for Last 24 hours: Intake & Output 08/01/23 08/02/23 08/03/23 08/04/23 23:59 23:59 23:59 23:59 Intake Total 1100 / 1100 5344 / 5584 990 / 1490 1700 / 1700 Output Total 650 / 650 2812 / 5012 6700 / 8000 3600 / 3600 Balance 450 / 450 2532 / 572 -5710 / -6510 -1900 / -1900 Weight 78.642 kg 77.991 kg 77.99 kg 77.991 kg Intake & Output 08/01/23 08/02/23 08/03/23 08/04/23 11:59 11:59 11:59 11:59 Intake Total 1000 / 1000 2212 / 2212 3952 / 3952 0 / 0 Output Total 400 / 400 2162 / 2162 5800 / 5800 Balance 600 / 600 50 / 50 -1848 / -1848 0 / 0 Weight 173 lb 6 oz 171 lb 15.051 oz 171 lb 15.051 oz Microbiology Reports for the Last 24 Hours: Microbiology 07/31/23 21:29 Blood Blood Culture - Preliminary 07/31/23 21:55 Blood Blood Culture - Preliminary 08/01/23 Unknown Urine,Clean Catch Urine Culture - Final *Routine Abdominal Exam Abdominal: Present soft and tenderness (generalized) Detailed Abdominal Exam Comments: tenderness noted Assessment and Plan *Assessment and plan (1) UTI (urinary tract infection): Status: Acute Category: Medical Code(s): N39.0 - Urinary tract infection, site not specified (2) Smoker: Status: Acute Category: Social Hx Code(s): F17.200 - Nicotine dependence, unspecified, uncomplicated (3) PTSD (post-traumatic stress disorder): Status: Acute Category: Medical Code(s): F43.10 - Post-traumatic stress disorder, unspecified (4) Hyperlipidemia: Status: Acute Category: Medical Code(s): E78.5 - Hyperlipidemia, unspe
--- NOTE | 2023-08-04 16:51 | PC.NURSE ---
primary tech note: pt ambulated the length of the hallway 5 times with stand by assistance. pt tolerated activity well.
[2023-08-04 20:00] VITALS: BP 159/94; PULSE 70; PULSE 71; RESP 18; TEMP 36.8; O2SAT 96
[2023-08-05] VITALS: BP 171/89; PULSE 70; PULSE 73; RESP 19; TEMP 36.7; O2SAT 95
[2023-08-05 04:00] VITALS: BP 150/89; PULSE 77; PULSE 80; RESP 19; TEMP 36.8; O2SAT 96; BMI 29.6
--- NOTE | 2023-08-05 05:10 | PC.NURSE ---
Patient has had a better night tonight. Has been able to sleep off and on all shift. Did have one accident, patient took a shower and got cleaned up. Has has multiple BM that are liquid. cabral remains in place. Patient walked the halls multiple times and in the room. Patient educated that she is on a full liquid diet and not a GI soft diet like she thought. Patient remains a fall risk with RN or tech taking her to the bathroom and on walks in the halls. No unsteady gate noted by RN. No other issues have been noted through the shift
[2023-08-05 07:04] LABS: Basophils % 0.2 % (0.1-2.0); Eosinophils # 0.3 K/mm3 (0.0-0.4); Hematocrit 34.4 % (37.0-47.0); Hemoglobin 11.9 g/dL (12.2-16.2); Lymphocytes # 1.5 K/mm3 (0.7-4.5); Lymphocytes % 14.9 % (10-50); Mean Corpuscular HGB Conc 34.5 g/dL (31.8-35.4); Mean Corpuscular Hemoglobin 29.6 pg (27.0-31.2); Mean Corpuscular Volume 85.6 fl (81-99); Mean Platelet Volume 8.2 fl (7.4-10.4); Monocytes # 0.7 K/mm3 (0.1-1.0); Monocytes % 6.9 % (1.7-9.3); Neutrophils # 7.4 K/mm3 (1.8-7.8); Platelet Count 386 K/mm3 (142-424); Red Blood Count 4.01 M/mm3 (4.20-5.40); Red Cell Distribution Width 13.5 % (11.5-17.5); White Blood Count 9.9 K/mm3 (4.8-10.8)
[2023-08-05 07:15] LABS: Anion Gap 10.4 mEq/L (5-15); Blood Urea Nitrogen 2 mg/dl (7-17); Calcium 8.2 mg/dl (8.4-10.2); Carbon Dioxide 29 mmol/L (22.0-30.0); Chloride 100 mmol/L (98-107); Creatinine Clearance Estimated 160 mL/min (50-200); Estimated Glomerular Filt Rate 128 ml/min (>60); GFR (African American) 154 ML/MIN (>60); Glucose 129 mg/dl (74-100); Potassium 3.4 mmoL/L (3.5-5.1); Sodium 136 mmol/L (136-145)
[2023-08-05 08:00] VITALS: BP 151/91; PULSE 84; PULSE 90; RESP 20; TEMP 36.9; O2SAT 96
--- NOTE | 2023-08-05 08:46 | EXP.SURG.PN ---
Subjective Patient reports: no new complaints and feels better Exam Data for Last 24 hours Vital signs and Labs for Last 24 Hours: Temp Pulse Resp BP Pulse Ox O2 Del Method O2 Flow Rate 98.4 F 84 20 151/91 H 96 Room Air 4 08/05/23 08:00 08/05/23 08:00 08/05/23 08:00 08/05/23 08:00 08/05/23 08:00 08/05/23 08:00 08/04/23 18:54 Laboratory Results - last 24 hr 08/04/23 08:21: Urine Color Yellow, Urine Appearance Clear, Urine pH 8.0, Ur Specific [place] 1.015, Urine Protein Negative, Urine Glucose (UA) Negative, Urine Ketones Negative, Urine Blood 1+, Urine Nitrate Positive, Urine Bilirubin Negative, Urine Urobilinogen 0.2, Ur Leukocyte Esterase Negative, Urine RBC 5-10, Urine WBC None, Ur Squamous Epith Cells 3-5, Ur Renal Epithelial Cell Occasional, Urine Bacteria 1+ 08/05/23 06:42: WBC 9.9, RBC 4.01 L, Hgb 11.9 L, Hct 34.4 L, MCV 85.6, MCH 29.6, MCHC 34.5, RDW 13.5, Plt Count 386, MPV 8.2, Neut % (Auto) 75.0, Lymph % (Auto) 14.9, [place] % (Auto) 6.9, Eos % (Auto) 3.0, Baso % (Auto) 0.2, Neut # (Auto) 7.4, Lymph # (Auto) 1.5, [place] # (Auto) 0.7, Eos # (Auto) 0.3, Baso # (Auto) 0.0, Sodium 136, Potassium 3.4 L, Chloride 100, Carbon Dioxide 29, Anion Gap 10.4, BUN 2 L, Creatinine 0.50 L, Estimated Creat Clear 160, Estimated GFR 128, Est GFR ( Amer) 154, Glucose 129 H, Calcium 8.2 L I & O for Last 24 hours: Intake & Output 08/02/23 08/03/23 08/04/23 08/05/23 11:59 11:59 11:59 11:59 Intake Total 2212 / 2212 3952 / 3952 1490 / 1490 1550 / 1550 Output Total 2162 / 2162 5800 / 5800 5400 / 5400 2700 / 2700 Balance 50 / 50 -1848 / -1848 -3910 / -3910 -1150 / -1150 Weight 171 lb 15.051 oz 171 lb 15.016 oz 171 lb 15.051 oz 178 lb Microbiology Reports for the Last 24 Hours: Microbiology 07/31/23 21:29 Blood Blood Culture - Preliminary 07/31/23 21:55 Blood Blood Culture - Preliminary 08/01/23 Unknown Urine,Clean Catch Urine Culture - Final Constitutional Constitutional: no acute distress *Routine Respiratory Exam Respiratory: Absent respiratory distress *Routine Cardiovascular Exam Cardiovascular: Absent tachycardia *Routine Abdominal Exam Abdominal: Present soft and tenderness Progress Note: A&P Assessment and plan (1) Diverticulitis of intestine, part unspecified, with perforation and abscess without bleeding: Status: Acute Assessment and plan: Continuing to improve on Invanz. Soft diet ordered Would likely benefit from continuation of Invanz upon discharge to complete course
[2023-08-05 12:00] VITALS: BP 159/92; PULSE 60; PULSE 86; RESP 21; TEMP 36.9; O2SAT 95
[2023-08-05 16:00] VITALS: BP 171/92; PULSE 65; PULSE 70; RESP 20; TEMP 36.6; O2SAT 98
--- NOTE | 2023-08-05 16:24 | EXP.PN ---
Subjective *Date: 08/05/23 *Time: 16:24 Interval history: Patient was seen and evaluated at the bedside. abdominal pain is better, denies chest pain, shortness of breath. feels better overall, has no complains today Exam Data for Last 24 hours Vital signs and Labs for Last 24 Hours: Temp Pulse Resp BP Pulse Ox O2 Del Method O2 Flow Rate 98.5 F 86 21 159/92 H 95 Room Air 4 08/05/23 12:00 08/05/23 12:00 08/05/23 12:00 08/05/23 12:00 08/05/23 12:00 08/05/23 13:00 08/04/23 18:54 Laboratory Results - last 24 hr 08/05/23 06:42: WBC 9.9, RBC 4.01 L, Hgb 11.9 L, Hct 34.4 L, MCV 85.6, MCH 29.6, MCHC 34.5, RDW 13.5, Plt Count 386, MPV 8.2, Neut % (Auto) 75.0, Lymph % (Auto) 14.9, [place] % (Auto) 6.9, Eos % (Auto) 3.0, Baso % (Auto) 0.2, Neut # (Auto) 7.4, Lymph # (Auto) 1.5, [place] # (Auto) 0.7, Eos # (Auto) 0.3, Baso # (Auto) 0.0, Sodium 136, Potassium 3.4 L, Chloride 100, Carbon Dioxide 29, Anion Gap 10.4, BUN 2 L, Creatinine 0.50 L, Estimated Creat Clear 160, Estimated GFR 128, Est GFR ( Amer) 154, Glucose 129 H, Calcium 8.2 L Temp Pulse Resp BP Pulse Ox O2 Del Method O2 Flow Rate 98.4 F 84 20 151/91 H 96 Room Air 4 08/05/23 08:00 08/05/23 08:00 08/05/23 08:00 08/05/23 08:00 08/05/23 08:00 08/05/23 08:00 08/04/23 18:54 Laboratory Results - last 24 hr 08/04/23 08:21: Urine Color Yellow, Urine Appearance Clear, Urine pH 8.0, Ur Specific [place] 1.015, Urine Protein Negative, Urine Glucose (UA) Negative, Urine Ketones Negative, Urine Blood 1+, Urine Nitrate Positive, Urine Bilirubin Negative, Urine Urobilinogen 0.2, Ur Leukocyte Esterase Negative, Urine RBC 5-10, Urine WBC None, Ur Squamous Epith Cells 3-5, Ur Renal Epithelial Cell Occasional, Urine Bacteria 1+ 08/05/23 06:42: WBC 9.9, RBC 4.01 L, Hgb 11.9 L, Hct 34.4 L, MCV 85.6, MCH 29.6, MCHC 34.5, RDW 13.5, Plt Count 386, MPV 8.2, Neut % (Auto) 75.0, Lymph % (Auto) 14.9, [place] % (Auto) 6.9, Eos % (Auto) 3.0, Baso % (Auto) 0.2, Neut # (Auto) 7.4, Lymph # (Auto) 1.5, [place] # (Auto) 0.7, Eos # (Auto) 0.3, Baso # (Auto) 0.0, Sodium 136, Potassium 3.4 L, Chloride 100, Carbon Dioxide 29, Anion Gap 10.4, BUN 2 L, Creatinine 0.50 L, Estimated Creat Clear 160, Estimated GFR 128, Est GFR ( Amer) 154, Glucose 129 H, Calcium 8.2 L I & O for Last 24 hours: Intake & Output 08/02/23 08/03/23 08/04/23 08/05/23 23:59 23:59 23:59 23:59 Intake Total 5344 / 5584 990 / 1490 2180 / 2330 860 / 860 Output Total 2812 / 5012 6700 / 8000 4100 / 5200 4600 / 4600 Balance 2532 / 572 -5710 / -6510 -1920 / -2870 -3740 / -3740 Weight 77.991 kg 77.99 kg 77.991 kg 80.739 kg Intake & Output 08/02/23 08/03/23 08/04/23 08/05/23 11:59 11:59 11:59 11:59 Intake Total 2212 / 2212 3952 / 3952 1490 / 1490 1550 / 1550 Output Total 2162 / 2162 5800 / 5800 5400 / 5400 2700 / 2700 Balance 50 / 50 -1848 / -1848 -3910 / -3910 -1150 / -1150 Weight 171 lb 15.051 oz 171 lb 15.016 oz 171 lb 15.051 oz 178 lb Microbiology Reports for the Last 24 Hours: Microbiology 08/03/23 15:00 Urine,[place] Urine Culture - Final 07/31/23 21:55 Blood Blood Culture - Preliminary 07/31/23 21:29 Blood Blood Culture - Preliminary Microbiology 07/31/23 21:29 Blood Blood Culture - Preliminary 07/31/23 21:55 Blood Blood Culture - Preliminary 08/01/23 Unknown Urine,Clean Catch Urine Culture - Final Constitutional Constitutional: no acute distress *Routine Respiratory Exam Respiratory: Absent respiratory distress *Routine Cardiovascular Exam Cardiovascular: Absent tachycardia *Routine Abdominal Exam Abdominal: Present soft and tenderness Assessment and Plan *Assessment and plan (1) UTI (urinary tract infection): Status: Acute Category: Medical Code(s): N39.0 - Urinary tract infection, site not specified (2) Smoker: Status: Acute Category: Social Hx Code(s): F17.200 - Nicotine dependence, unspecified, uncomplicated
--- NOTE | 2023-08-05 16:33 | PC.NURSE ---
PT REQUESTS FOR PULL ALARMS TO BE REMOVED. EDUCATED ON RISK FOR FALLS DUE TO MEDICATIONS ETC. PT STATES SHE UNDERSTANDS THE RISK FOR FALLS ASSOCIATED WITH REMOVAL OF ALARM DEVICE.
[2023-08-05 20:00] VITALS: BP 175/94; PULSE 68; PULSE 70; RESP 18; TEMP 37.2; O2SAT 95
[2023-08-06] VITALS (13 sets, daily range): BP systolic 129–197; BP diastolic 73–120; PULSE 60–100; RESP 17–18; TEMP 36.6–37.4; O2SAT 94–99; BMI 30.4
[2023-08-06 03:53] LABS: Microscopic, Urine URINE MICROSCOPIC (MICROSCOPIC)
[2023-08-06 04:36] LABS: Appearance,Urine CLEAR (Clear); Bilirubin,Urine Negative (Negative); Blood, Urine Negative (Negative); Color,Urine YELLOW (Yellow); Glucose,Urine (UA) Negative (Negative); Ketones,Urine Negative (Negative); Leukocyte Esterase,Urine Negative (Negative); Nitrate,Urine POSITIVE (Negative); PH,Urine 7.5 (5.0-8.5); Protein,Urine Negative (Negative); Specific Gravity, Urine 1.015 (1.005-1.030); Urobilinogen,Urine 0.2 EU/dl (0.2)
[2023-08-06 04:59] LABS: Bacteria,Urine Trace /lpf; RBC,Urine Occasional #/hpf (0-3); WBC,Urine Occasional #/hpf (0-3)
--- NOTE | 2023-08-06 08:21 | P.PN_ITS ---
Subjective Narrative: The patient states she developed severe pelvic pain yesterday evening that resolved once her Dan catheter was replaced. Exam Data for Last 24 hours Vital signs and Labs for Last 24 Hours: Temp Pulse Resp BP Pulse Ox O2 Del Method O2 Flow Rate 99.0 F 100 H 18 176/95 H 96 Room Air 4 08/06/23 04:00 08/06/23 04:00 08/06/23 04:00 08/06/23 04:05 08/06/23 04:00 08/06/23 07:00 08/04/23 18:54 Laboratory Results - last 24 hr 08/06/23 03:20: Urine Color Yellow, Urine Appearance Clear, Urine pH 7.5, Ur Specific [place] 1.015, Urine Protein Negative, Urine Glucose (UA) Negative, Urine Ketones Negative, Urine Blood Negative, Urine Nitrate Positive, Urine Bilirubin Negative, Urine Urobilinogen 0.2, Ur Leukocyte Esterase Negative, Urine RBC Occasional, Urine WBC Occasional, Ur Squamous Epith Cells 3-5, Urine Bacteria Trace I & O for Last 24 hours: Intake & Output 08/03/23 08/04/23 08/05/23 08/06/23 11:59 11:59 11:59 10:59 Intake Total 3952 / 3952 1490 / 1490 1550 / 1550 1500 / 1500 Output Total 5800 / 5800 5400 / 5400 2700 / 4600 5250 / 5250 Balance -1848 / -1848 -3910 / -3910 -1150 / -3050 -3750 / -3750 Weight 171 lb 15.016 oz 171 lb 15.051 oz 178 lb 182 lb 6 oz Microbiology Reports for the Last 24 Hours: Microbiology 08/03/23 15:00 Urine,[place] Urine Culture - Final 07/31/23 21:55 Blood Blood Culture - Preliminary 07/31/23 21:29 Blood Blood Culture - Preliminary Constitutional Constitutional: no acute distress *Routine Respiratory Exam Respiratory: Absent respiratory distress *Routine Cardiovascular Exam Comments: Currently regular *Routine Abdominal Exam Abdominal: Present soft Comments: Persistent lower abdominal/pelvic tenderness (slightly improved) Progress Note: A&P Assessment and plan (1) Diverticulitis of intestine, part unspecified, with perforation and abscess without bleeding: Status: Acute Assessment and plan: Continuing to improve on Invanz. Continue soft diet Would likely benefit from continuation of Invanz upon discharge to complete course
--- NOTE | 2023-08-06 09:38 | EXP.PHA.PN ---
Subjective *Date: 08/06/23 *Time: 09:38 Medical Exam Vital signs and Labs for Last 24 Hours: Vital Signs Temp Pulse Pulse Resp BP Pulse Ox O2 Del Method 08/06/23 08:00 99.3 F 100 H 18 162/105 H 97 Room Air 08/06/23 07:00 Room Air 08/06/23 05:00 Room Air 08/06/23 04:00 99.0 F 100 H 18 164/89 H 96 Room Air 08/06/23 04:00 100 H 08/06/23 04:05 176/95 H 08/06/23 03:00 Room Air 08/06/23 00:00 97.8 F 85 18 170/120 H 94 L 08/06/23 02:34 190/109 H 08/06/23 02:00 197/119 H 08/06/23 01:00 EST 88 197/119 H 08/05/23 20:00 70 08/06/23 01:33 EST 97.9 F 08/06/23 01:25 EST 170/120 H 08/06/23 00:00 90 08/05/23 23:00 Room Air 08/05/23 21:00 Room Air 08/05/23 20:00 Room Air 08/05/23 20:00 98.9 F 68 18 175/94 H 95 Room Air 08/05/23 18:20 Room Air 08/05/23 16:00 70 08/05/23 16:00 97.9 F 65 20 171/92 H 98 Room Air 08/05/23 16:35 Room Air 08/05/23 15:00 Room Air 08/05/23 13:00 Room Air 08/05/23 12:00 60 08/05/23 12:00 98.5 F 86 21 159/92 H 95 Room Air 08/05/23 11:00 Room Air Intake and Output 08/06/23 08/06/23 08/06/23 00:59 07:59 15:59 Intake Total Output Total 1500 / 4350 Balance -1500 / -3390 Intake: Intake, Oral Amount Output: Output, Urine Amount 1500 / 3250 Output, Urine Amount (Catheter) Straight Urethral Other: Number of Unmeasured Voids 0 Weight Patient Weight 08/06/23 22:59 Weight 82.724 kg Laboratory Results - last 24 hr 08/06/23 03:20: Urine Color Yellow, Urine Appearance Clear, Urine pH 7.5, Ur Specific [place] 1.015, Urine Protein Negative, Urine Glucose (UA) Negative, Urine Ketones Negative, Urine Blood Negative, Urine Nitrate Positive, Urine Bilirubin Negative, Urine Urobilinogen 0.2, Ur Leukocyte Esterase Negative, Urine RBC Occasional, Urine WBC Occasional, Ur Squamous Epith Cells 3-5, Urine Bacteria Trace I & O for Labs for Last 24 Hours: Intake & Output 08/03/23 08/04/23 08/05/23 08/06/23 23:59 23:59 23:59 22:59 Intake Total 990 / 1490 2180 / 2330 1130 / 2090 960 / 960 Output Total 6700 / 8000 4100 / 5200 4600 / 4600 4350 / 4350 Balance -5710 / -6510 -1920 / -2870 -3470 / -2510 -3390 / -3390 Weight 77.99 kg 77.991 kg 80.739 kg 82.724 kg Microbiology Reports for the Last 24 Hours: Microbiology 08/03/23 15:00 Urine,[place] Urine Culture - Final 07/31/23 21:55 Blood Blood Culture - Preliminary 07/31/23 21:29 Blood Blood Culture - Preliminary The patient's infection will respond to the chosen ABx?: Yes (BLOOD AND URINE CULTURES NO GROWTH, AFEBRILE) Is the patient receiving the right drug, dose, and route?: Yes Could a more targeted ABx be ordered?: No
--- NOTE | 2023-08-06 13:38 | EXP.PN ---
Subjective *Date: 08/06/23 *Time: 13:38 Interval history: Patient was seen and evaluated at the bedside. abdominal pain has resolved, had BM today, tolerating regular food, denies chest pain, shortness of breath. feels better overall, has no complains today Exam Data for Last 24 hours Vital signs and Labs for Last 24 Hours: Temp Pulse Resp BP Pulse Ox O2 Del Method O2 Flow Rate 98.3 F 64 17 129/76 97 Room Air 4 08/06/23 11:52 08/06/23 11:52 08/06/23 11:52 08/06/23 11:52 08/06/23 11:52 08/06/23 13:00 08/04/23 18:54 Laboratory Results - last 24 hr 08/06/23 03:20: Urine Color Yellow, Urine Appearance Clear, Urine pH 7.5, Ur Specific [place] 1.015, Urine Protein Negative, Urine Glucose (UA) Negative, Urine Ketones Negative, Urine Blood Negative, Urine Nitrate Positive, Urine Bilirubin Negative, Urine Urobilinogen 0.2, Ur Leukocyte Esterase Negative, Urine RBC Occasional, Urine WBC Occasional, Ur Squamous Epith Cells 3-5, Urine Bacteria Trace I & O for Last 24 hours: Intake & Output 08/03/23 08/04/23 08/05/23 08/06/23 23:59 23:59 23:59 22:59 Intake Total 990 / 1490 2180 / 2330 1130 / 2090 1080 / 1080 Output Total 6700 / 8000 4100 / 5200 4600 / 4600 5350 / 5350 Balance -5710 / -6510 -1920 / -2870 -3470 / -2510 -4270 / -4270 Weight 77.99 kg 77.991 kg 80.739 kg 82.724 kg Microbiology Reports for the Last 24 Hours: Microbiology 08/03/23 15:00 Urine,[place] Urine Culture - Final 07/31/23 21:55 Blood Blood Culture - Preliminary 07/31/23 21:29 Blood Blood Culture - Preliminary Constitutional Constitutional: no acute distress *Routine HEENT Exam Head: Present normocephalic Eye: Present EOMI and PERRL ENT: Present mucous membranes moist *Routine Neck Exam Neck: Present supple; Absent lymphadenopathy *Routine Respiratory Exam Respiratory: Present CTA bilaterally *Routine Cardiovascular Exam Cardiovascular: Present RRR *Routine Abdominal Exam Abdominal: Present soft and normoactive bowel sounds; Absent tenderness *Routine Extremities Exam Extremities: Absent cyanosis, clubbing or edema *Routine Skin Exam Skin: Present warm; Absent rash *Routine Neurological Exam Neurological: Present alert and oriented X3 Assessment and Plan *Assessment and plan (1) UTI (urinary tract infection): Status: Acute Category: Medical Code(s): N39.0 - Urinary tract infection, site not specified (2) Smoker: Status: Acute Category: Social Hx Code(s): F17.200 - Nicotine dependence, unspecified, uncomplicated (3) PTSD (post-traumatic stress disorder): Status: Acute Category: Medical Code(s): F43.10 - Post-traumatic stress disorder, unspecified (4) Hyperlipidemia: Status: Acute Category: Medical Code(s): E78.5 - Hyperlipidemia, unspecified (5) Hypokalemia: Status: Acute Category: Medical Code(s): E87.6 - Hypokalemia (6) Hypertension: Status: Acute Category: Medical Code(s): I10 - Essential (primary) hypertension Plan Patient is a 57-year-old female who presented to hospital due to lung cancer, PTSD, hypertension hyperlipidemia tobacco use who presented to hospital due to pain in lower abdomen Assessment Diverticulitis Perforated diverticulum with abscess formation Sepsis present on admission - improved Urinary tract infection Hypokalemia - improved Hypertension Hyperlipidemia PTSD Tobacco use Plan Started on invanz, GS recs to continue IV abx at DC, PICC line has been ordered, discussed with patient and as well about PICC line, according to uptodate - For diverticulitis or uncomplicated appendicitis managed without intervention, duration is 10 to 14 days, 1 g once daily dosing , Pain control General surgery consulted and following - appreciate recs clear liquids Monitor and replace electrolytes Follow-up on urine culture report - no growth DVT prophylaxis- Lisette
--- NOTE | 2023-08-06 17:16 | PC.NURSE ---
A&OX4. TOLERATING RA WELL. AMBULATING WITH STANDBY ASSISTANCE IN ROOM. HAS RESTED IN BED MAJORITY OF SHIFT. HAS BEEN AMBULATING TO AND FROM BATHROOM, AND IN HALLWAY THIS SHIFT. TOLERATES WELL. PT HAS C/O INTERMITTENT ABD PAIN, AND GENERAL PELVIC/ANUS PAIN. TX PER NOV, EFFECTIVENESS NOTED. F/C DRAINING BRIGHT ORANGE URINE. PT DID GET SHOWER THIS SHIFT. NO OTHER NEEDS OR C/O AT THIS TIME, VSS.
[2023-08-07] VITALS: BP 147/76; PULSE 80; RESP 18; TEMP 36.8; O2SAT 92
[2023-08-07 04:00] VITALS: BP 150/85; PULSE 80; PULSE 83; RESP 16; TEMP 37.2; O2SAT 97; BMI 30.3
--- NOTE | 2023-08-07 05:49 | PC.NURSE ---
pt has rested well through the night, pt did report some indigestion and burning in epigastric area. pt given luis protonix with relief of complaints. f/c draining well.
[2023-08-07 06:49] LABS: Basophils % 0.3 % (0.1-2.0); Eosinophils # 0.3 K/mm3 (0.0-0.4); Eosinophils % 2.4 % (0.1-12.0); Hematocrit 33.8 % (37.0-47.0); Hemoglobin 11.8 g/dL (12.2-16.2); Lymphocytes # 1.6 K/mm3 (0.7-4.5); Lymphocytes % 12.5 % (10-50); Mean Corpuscular Hemoglobin 29.6 pg (27.0-31.2); Mean Corpuscular Volume 84.7 fl (81-99); Mean Platelet Volume 7.9 fl (7.4-10.4); Monocytes # 0.7 K/mm3 (0.1-1.0); Monocytes % 5.5 % (1.7-9.3); Neutrophils # 10.2 K/mm3 (1.8-7.8); Neutrophils % 79.2 % (37.0-80.0); Platelet Count 375 K/mm3 (142-424); Red Blood Count 3.99 M/mm3 (4.20-5.40); Red Cell Distribution Width 13.6 % (11.5-17.5); White Blood Count 12.8 K/mm3 (4.8-10.8)
[2023-08-07 07:37] VITALS: BP 140/84; PULSE 80; RESP 16; TEMP 36.8; O2SAT 94
[2023-08-07 08:00] VITALS: PULSE 85
--- NOTE | 2023-08-07 08:05 | PC.NURSE ---
The patient ate the breakfast as delivered to the room. In addition, the patient had her daughter get her additional breakfast items - tavera, biscuit and gravy. Informed the patient she was on a soft diet and tavera didn't fall into that category. Also informed the patient if she was still having stomach pains a meeting manager breakfast option would be be optimal. The patient states, I want tavera and my daughter is going to get it . The patient looked at her daughter and states, I said I want tavera. Tavera. Tavera. Tavera. .
--- NOTE | 2023-08-07 09:29 | PC.NURSE ---
patient states, i need something for pain. the dilaudid helped me for just a bit but I'm hurting again. Administered scheduled Ketorlac.
[2023-08-07 11:16] VITALS: BP 132/72; PULSE 71; RESP 17; TEMP 36.9; O2SAT 100
--- NOTE | 2023-08-07 11:35 | SW/DCPLANNER ---
Addendum entered by Ailyn Mckeon 08/08/23 14:54: Patient information and form has been faxed to [facility]. Addendum entered by Ailyn Mckeon 08/08/23 09:43: Carol Kinsey has stated that I will need to contact [facility] and have them send an order due to insurance. I have attempted to contact [facility]: VM left and waiting on a return phone call. Addendum entered by Ailyn Mckeon 08/07/23 15:37: Per patient, and daughter the plan is to discharge home w/ daughter to assist w/ IV Invanz for the next 9 days, home health ([facility]) to start tomorrow 08/08/23 and agrees for [facility] to deliver IV Invanz and understands she will be bill by [employer]. Patient has no further needs/questions at this time. Daughter asked that we contact 's phone at [phone] for any additional questions and home health/[facility] to contact. Addendum entered by Ailyn Mckeon 08/07/23 15:05: Per Carol Kinsey: they will bill Medicare first then submit to . They will not know what will bill until after it goes through them and if at that point if there is a cost they would set up payment plans. I explained this to patient and due to additional questions I have asked Amelie to contact the patient regarding billing. Carol Kinsey stated that she will contact patient now. Addendum entered by Ailyn Mckeon 08/07/23 13:36: Carol Kinsey is currently reviewing information/order. Jaymie gómez/ [facility] stated that home health services will begin tomorrow 08/08/23. Original Note: Per MD patient will need to discharge home w/ IV antibiotic (IV Invanz 1gram) for 9 more days after today. I spoke w/ patient regarding discharge plans this AM. Patient was not very cooperative during my discussion stating turn my TV back on my daughter is going to take care of it I dont care sign me up for whatever . I informed patient that I could sign her up for home health services and [facility] for at home medication. Patient then pulled the Home Health form out of my hand, signed paper and stated sign me up for whatever you want then went into the restroom. I will fax patient information/order to [facility] w/ the plan being to discharge home this afternoon. I will follow up w/ [facility] once patient information/order is reviewed.
--- NOTE | 2023-08-07 12:54 | EXP.DC.SUM ---
General Admission date:: 08/01/23 Discharge date: 08/07/23 HPI HPI HPI: Asked to see this 57-year-old patient for findings of complicated diverticulitis. She presented to the emergency department yesterday evening on 07/31/2023 with some abdominal pain, dysuria, and feelings of bloating and constipation for about 4 days. She has a prior history of lung cancer, PTSD, anxiety, hypertension, hyperlipidemia, tobacco abuse, Jose Manuel's granulomatosis. She had tried to add self administer enemas with minimal relief. Locates her pain to the lower abdomen. She had taken some Keflex at home due to dysuria. She presented to the emergency department in the evening of 07/31/2023. She was found to have a leukocytosis of 18,200. She underwent CT scan of the abdomen and pelvis which revealed findings consistent with acute diverticulitis with some extraluminal air, fluid collection around the sigmoid colon and pelvis, and findings suggestive of mild small bowel ileus likely secondary to diverticulitis. ER physician had contacted general surgery and long discussion was held. Plan was made for inpatient management admission to hospitalist service with surgical consultation. She was placed on antibiotics. This morning her leukocytosis has improved to 11,000. Her pain is slightly improved. Patient states that she has previously had several colonoscopies at outside facilities. She had previously lived in [place]. She has a family history of colon cancer in her father and brother. Last colonoscopy was apparently at the [facility] about 3 to 4 years ago. Hospital Course Hospital Course Hospital Course: Patient is a 57-year-old female with history of lung cancer, PTSD, hypertension, hyperlipidemia, tobacco use disorder. Presented to the hospital with lower abdominal pain, constipation, and dysuria for 4 days. Found to have perforated diverticulum with abscess formation. Sepsis on admission. Surgery was consulted. Patient initiated on empiric antibiotics. Gradually improved. PICC line placed and patient stable for discharge home to complete 14-day course of antibiotics. Problems during hospitalization as follows: PERFORATED DIVERTICULUM INTRA-ABDOMINAL ABSCESS SEPSIS -c/o abdominal pain, constipation, and dysuria for the past four days. CT of the abdomen obtained revealing acute diverticulitis with perforation, free air with large collection around the sigmoid colon, and irregular fluid collection in the pelvis with mild ileus. Initiated on Zosyn and surgery was consulted. White cell count 18.2 on admission. Showed gradual improvement during admission, 12.8 on day of discharge. Surgery evaluated patient, they note that she has moderate complicated diverticulitis. After reviewing imaging, she would require sigmoid colon resection with creation of an end colostomy as a Chong's type pouch. Indications for surgery would be for source control of her infection. If she has shown improvement with her sepsis, does not have diffuse peritonitis, recommend at this time to continue antibiotics with bowel rest. If symptoms worsen or progress, will reevaluate need for surgery. Patient medically managed. Transition to Invanz for ease of dosing with once daily IV therapy. PICC line placed on day of discharge and patient to complete 14-day total antibiotic course. Invanz ordered for home administration. Initially received Dilaudid for her pain. Transitioned to oral opiates for pain control upon discharge. Also tolerating Toradol with some improvement in pain. 3-day course of both medications sent on discharge. Suspected UTI -c/o dysuria for four days. Took home keflex tablets urine in the ED was positive for nitrates and occasional white blood cells. Urine culture obtained. Antibiotics for problem above we will treat concern for UTI. Still having dysuria at discharge. Sent with short course of Pyridium. Urine ultimately did not show any positive growth. Abnormal UA fin
--- NOTE | 2023-08-07 13:14 | PC.NURSE ---
Patient came to door of room, states, I was going to see if I can have anything for pain . After checking MAR, advised the patient she has scheduled Ketorlac around 1500 and her next PRN dose of Oxycodone isn't until around 1700.
--- NOTE | 2023-08-07 13:15 | PC.NURSE ---
Patient is fully dressed, with boots/shoes, lying in the bed. Male friend at bedside.
--- NOTE | 2023-08-07 13:52 | PC.NURSE ---
Patient reported pain. Called Dr. Cleveland. No new orders given.
--- NOTE | 2023-08-07 13:59 | PC.NURSE ---
PICC nurses at bedside.
--- NOTE | 2023-08-07 14:20 | XR_ITS ---
FINAL REPORT CLINICAL HISTORY: verify PICC line placement. COMPARISON: None FINDINGS: A portable view of the chest was obtained. Left PICC line tip is in the right atrium. Cardiac and mediastinal silhouettes are within normal limits. Lung volumes are low. There is no focal infiltrate. There is no pleural effusion or pneumothorax. IMPRESSION: Left PICC line tip in the right atrium. If desired placement is in the SVC, consider retracting by 3 cm. Low lung volumes without focal infiltrate. Reviewed, Interpreted and Dictated by Chantale Chen MD Transcribed by Duyen Hummel Authenticated and [facility]
--- NOTE | 2023-08-07 16:21 | PC.NURSE ---
Called patient in regards to PICC line. Per TAWNYA Pascual the patient would need to come back to the hospital to have placement adjusted. Patient was pulling in at home, and going to have her daughter bring her back to the ER waiting.
--- NOTE | 2023-08-07 17:38 | PC.NURSE ---
Pt back to triage room in ED for repositioning of PICC line. Using sterile technique dressing removed and PICC pulled out 3 cm per Rad report. Sterile dressing replaced. Blood returned confirmed.
--- NOTE | 2023-08-08 15:21 | CARE MANAGER ---
Contacted patient related to hospital discharge. She states that home health is currently there, but she does want to know if Dr. Cleveland can call her in something for her urinary pain. She also wanted to know if there were any local doctors that took [facility] insurance. I contacted Dr. Cleveland and related the message. He is going to call in [facility] to [facility]. I also let her know that I contacted Dr. Hu's office here in town ad they do accept [facility] insurance. TAWNYA Ann
== END 2023-08-07 15:46 | disposition home health service (06) | DRG 872 ==
LOC: ER 21:43 → 2ND 22:12
PROVIDERS: Internal Medicine; Nurse Practitioner Critical Care Medicine; Nurse Practitioner Family; Surgery; Admitting Provider Internal Medicine Adolescent Medicine; Emergency Provider Student in an Organized Health Care Education/Training Program; Visit Provider Internal Medicine Adolescent Medicine
DX: A41.9 Sepsis, unspecified organism (principal); K57.80 Diverticulitis of intestine, part unspecified, with perforation and abscess without bleeding; N39.0 Urinary tract infection, site not specified; M31.30 Wegener's granulomatosis without renal involvement; Z85.118 Personal history of other malignant neoplasm of bronchus and lung; E78.5 Hyperlipidemia, unspecified; I10 Essential (primary) hypertension; Z87.820 Personal history of traumatic brain injury; E87.6 Hypokalemia; F43.10 Post-traumatic stress disorder, unspecified; F17.200 Nicotine dependence, unspecified, uncomplicated
CPT/HCPCS: 36569; 36410; 36415; 71045; 74176; 74177; 80048; 80053; 81001; 83605; 83690; 85007; 85025; 87040; 87086; 99291; C1751; G0378; J0131; J1335; J2405; J2543; Q9967

== ENCOUNTER 2023-08-22 10:17 | Emergency (ER) | payer MEDICARE, OTHER, SELFPAY ==
[2023-08-22] VITALS (24 sets, daily range): BP systolic 102–143; BP diastolic 57–74; PULSE 67–92; RESP 14–29; TEMP 37.1–37.7; O2SAT 90–97; BMI 26.8
--- NOTE | 2023-08-22 10:24 | CT_ITS ---
FINAL REPORT CLINICAL HISTORY: severe abd pain, recent perf divertic, no UOP COMPARISON: 08/03/2023 FINDINGS: CT OF THE ABDOMEN AND PELVIS WITH CONTRAST Axial CT images of the abdomen and pelvis were obtained after the administration of IV contrast. Coronal and sagittal reformatted images were also obtained and reviewed. This study was performed with techniques to keep radiation doses as low as reasonably achievable (ALARA). Individualized dose reduction techniques using automated exposure control or adjustment of mA and/or kV according to the patient's size were employed. Abdomen: Mild bibasilar atelectasis is present.. The heart is normal in size. The liver has an unremarkable appearance, without evidence of mass or biliary ductal dilatation. Probable gallstones are present. The spleen is unremarkable. No adrenal mass is present. The pancreas has an unremarkable appearance. The kidneys are normal, without evidence of mass or hydronephrosis. The aorta is normal in caliber. There are multiple fluid-filled bowel loops, nonspecific, but would favor ileus. Pelvis: The appendix is not well-visualized. The urinary bladder contains a Dan catheter. There is significant interval enlargement of a fluid collection in the central pelvis, which today measures 11.6 x 4.5 cm in size, consistent with an abscess in this patient who had a perforated diverticulum recently. There is a component extending to the left side of the pelvis, measuring up to 4.5 cm in the transverse dimension. It also extends into the lower pelvis just to the right of the rectum. There is no evidence of bowel obstruction. IMPRESSION: Significant interval enlargement in the fluid collection in the central pelvis since the prior CT of August 03. This measures 11.6 x 4.5 cm in size, and is consistent with an abscess. A component extends to the right measuring 4.5 cm transverse, and extends into the lower pelvis to the level of the rectum. Multiple fluid-filled bowel loops are present, nonspecific but favor ileus. Reviewed, Interpreted and Dictated by Cristopher Pike III, MD Transcribed by Coby Pedroza Authenticated and [facility]
--- NOTE | 2023-08-22 10:25 | ECG_ITS ---
APPROVED REPORT Exam: Resting ECG HR:88 bpm ECG Measurements Heart Rate 88 AXES FL 150 P 74 QRSd 84 QRS 21 QT 367 T 58 QTc 413 Conclusion SINUS RHYTHM NONSPECIFIC T-WAVE ABNORMALITY BORDERLINE ECG UNCONFIRMED REPORT Electronically signed by : João Osei MD 08/23/2023 17:12:31
--- NOTE | 2023-08-22 10:33 | PC.NURSE ---
Emptied pt cabral and measured 1100 in a urinal
--- NOTE | 2023-08-22 10:44 | HMH.EDGENADL ---
Discharge Plan Disposition Patient Disposition: Xfer Short-Term Hosp Condition: Fair Prescriptions Prescriptions: No Action atorvastatin [Lipitor] 40 mg Tablet 40 mg PO DAILY ibuprofen 800 mg Tablet 800 mg PO QID metoprolol tartrate 100 mg Tablet 100 mg PO DAILY Patient Comments: Extended release fexofenadine 180 mg Tablet 180 mg PO DAILY Rx Instructions: Allergies omeprazole 40 mg Capsule,Delayed Release(Dr/Ec) 40 mg PO BID estrone 5 mg/mL Suspension 5 mg IM DAILY diazepam [Valium] 10 mg Tablet 10 mg PO TID Rx Instructions: Anxiety tizanidine 4 mg Tablet 4 mg PO PM methocarbamol 750 mg Tablet 750 mg PO BID albuterol sulfate 90 mcg/actuation Hfa Aerosol Inhaler 2 puff INHALATION Q6H PRN (Reason: Shortness Of Breath) omega 3-vsw-irj-fish oil [Fish Oil] 1,000 mg (120 mg-180 mg) Capsule 1 cap PO BID mupirocin 2 % Ointment 1 applic topical QID Rx Instructions: pt states applied intranasally qid, mixed with warm water and netti pot docusate sodium 100 mg Capsule 100 mg PO BIDP PRN (Reason: Constipation) 10 Days Qty: 20 0RF ketorolac 10 mg tablet 10 mg PO Q6H PRN (Reason: pain) 3 Days Qty: 12 0RF Rx Instructions: tolerated IV during admission with no side effects oxycodone-acetaminophen 5-325 mg Tablet 2 tab PO Q6HP PRN (Reason: Moderate To Severe Pain (4-10)) 3 Days Qty: 24 0RF ertapenem 1 gram Recon Soln 1 g IV Q24H 9 Days Qty: 0 0RF phenazopyridine [Pyridium] 200 mg tablet 200 mg PO TID PRN (Reason: pain) Qty: 6 0RF Referrals Follow up/Referrals: Provider,Referral, MD [Primary Care Provider] - See instructions Clinical Impressions Clinical Impression: Abdominal pain, Hypokalemia, Hypertension, Acute urinary retention, UTI (urinary tract infection), Hyponatremia, Abscess of pelvis Instructions Patient Instructions: DI for Acute Abdominal Pain Discharge ED Provider: Angela Caldwell General Adult HPI General Chief complaint: Abdominal Pain Stated complaint: ABDOMINAL PAIN Time Seen by Provider: 08/22/23 10:22 History of Present Illness HPI narrative: This patient is a 57-year-old female with a history of hypertension, hyperlipidemia, and recent perforated diverticulitis with admission to the hospital at the end of July presenting to the emergency department for evaluation with concern for abdominal pain. Patient reports that since going home, she had been doing well initially, however she has had difficulty urinating for the last week and has not urinated all in the past 2 days. She complains of severe lower abdominal pain and pressure, and is being just to put a Dan in and get the urine out. She states she was post to follow-up with Dr. Tse today, but they sent her over here given severity of her pain. On medical record review, the patient was treated conservatively with antibiotics and slow advancement of diet. She did have urinary retention while in the hospital, and she had a Dan catheter while here. She notes that she was able to urinate after removal and discharge home, but the urinary symptoms returned approximately 1 week ago. History is otherwise difficult to obtain at this time given the severity of the patient's pain and acuity of condition. Related Data Home Medications Medication Instructions Recorded Confirmed atorvastatin 40 mg tablet (Lipitor) 40 mg PO DAILY 07/31/23 08/01/23 diazepam 10 mg tablet (Valium) 10 mg PO TID 07/31/23 08/01/23 estrone 5 mg/mL intramuscular 5 mg IM DAILY 07/31/23 08/01/23 suspension fexofenadine 180 mg tablet 180 mg PO DAILY 07/31/23 08/01/23 ibuprofen 800 mg tablet 800 mg PO QID 07/31/23 08/01/23 methocarbamol 750 mg tablet 750 mg PO BID 07/31/23 08/01/23 metoprolol tartrate 100 mg tablet 100 mg PO DAILY 07/31/23 08/01/23 omeprazole 40 mg capsule,delayed 40 mg PO BID 07/31/23 08/01/23 release tizanidine
[2023-08-22 10:48] LABS: Microscopic, Urine URINE MICROSCOPIC (MICROSCOPIC)
[2023-08-22 10:50] LABS: Basophils # 0.1 K/mm3 (0-0.2); Basophils % 0.3 % (0.1-2.0); Eosinophils # 0.1 K/mm3 (0.0-0.4); Eosinophils % 0.4 % (0.1-12.0); Lymphocytes # 2.4 K/mm3 (0.7-4.5); Lymphocytes % 12.2 % (10-50); Mean Corpuscular HGB Conc 34.3 g/dL (31.8-35.4); Mean Corpuscular Hemoglobin 28.3 pg (27.0-31.2); Mean Corpuscular Volume 82.5 fl (81-99); Monocytes # 1.9 K/mm3 (0.1-1.0); Monocytes % 9.7 % (1.7-9.3); Neutrophils # 15.4 K/mm3 (1.8-7.8); Neutrophils % 77.5 % (37.0-80.0); Platelet Count 413 K/mm3 (142-424); Red Blood Count 4.25 M/mm3 (4.20-5.40); Red Cell Distribution Width 13.5 % (11.5-17.5); White Blood Count 19.9 K/mm3 (4.8-10.8)
[2023-08-22 10:52] LABS: Appearance,Urine CLEAR (Clear); Bilirubin,Urine Negative (Negative); Blood, Urine Negative (Negative); Color,Urine YELLOW (Yellow); Glucose,Urine (UA) TRACE (Negative); Ketones,Urine Negative (Negative); Leukocyte Esterase,Urine TRACE (Negative); Nitrate,Urine POSITIVE (Negative); PH,Urine 5.5 (5.0-8.5); Protein,Urine 2+ (Negative); Specific Gravity, Urine <= 1.005 (1.005-1.030); Urobilinogen,Urine >=8.0 EU/dl (0.2)
[2023-08-22 11:00] LABS: MANUAL DIFFERENTIAL MANUAL DIFFERENTIAL (MANUAL DIFF)
[2023-08-22 11:01] LABS: Lactic Acid 1.1 mmol/L (0.7-2.1)
[2023-08-22 11:04] LABS: Alanine Aminotransferase 38 U/L (12-78); Albumin Level 3.6 g/dl (3.5-5.0); Albumin/Globulin Ratio 1.1 (1.1-1.8); Alkaline Phosphatase 117 U/L (38-126); Anion Gap 9.1 mEq/L (5-15); Aspartate Amino Transferase 42 U/L (14-36); Bilirubin,Total 0.8 mg/dl (0.2-1.3); Blood Urea Nitrogen 12 mg/dl (7-17); Calcium 8.9 mg/dl (8.4-10.2); Carbon Dioxide 31 mmol/L (22.0-30.0); Chloride 92 mmol/L (98-107); Creatinine Clearance Estimated 91 mL/min (50-200); Estimated Glomerular Filt Rate 74 ml/min (>60); GFR (African American) 90 ML/MIN (>60); Globulin 3.3 g/dL (1.3-3.2); Glucose 120 mg/dl (74-100); Lipase 26 U/L (23-300); Potassium 3.1 mmoL/L (3.5-5.1); Sodium 129 mmol/L (136-145); Total Protein,Serum 6.9 g/dl (6.3-8.2)
--- NOTE | 2023-08-22 11:06 | PC.NURSE ---
lab contacted to draw 2nd set of blood cultures
[2023-08-22 11:14] LABS: Bacteria,Urine Trace /lpf; Squamous Epithelial Cell,Urine Occasional #/hpf (0-5); WBC,Urine Occasional #/hpf (0-3)
--- NOTE | 2023-08-22 11:30 | PC.NURSE ---
pt was at ct when rounded family needed nothing at this time
[2023-08-22 12:13] LABS: Magnesium 2.1 mg/dl (1.6-2.3)
[2023-08-22 12:18] LABS: Lymphocytes % 19 % (10-50); Monocytes % 4 % (2-9); Neutrophils % 77 % (42-76); Platelet Estimate Normal; RBC Morphology Normal; Total Cells Counted 100
--- NOTE | 2023-08-22 13:07 | PC.NURSE ---
surgeon refrigeration operator paged
--- NOTE | 2023-08-22 13:08 | PC.NURSE ---
CONTACTED GENERAL SURGEON CREDIT OPERATIONS PROCESSOR FOR PT
--- NOTE | 2023-08-22 13:49 | PC.NURSE ---
Dr. Tse at [facility] for pt consult
--- NOTE | 2023-08-22 14:02 | PC.NURSE ---
Called [facility] MD's for Dr. Caldwell; awaiting for a call back.
--- NOTE | 2023-08-22 14:05 | PC.NURSE ---
speaking with [facility]
--- NOTE | 2023-08-22 14:16 | PC.NURSE ---
has no available beds at this time; calling [facility] now
--- NOTE | 2023-08-22 14:29 | PC.NURSE ---
called [facility] waiting for hospitalist to call back to speak with er md about excepting and placing on wait list
--- NOTE | 2023-08-22 14:34 | PC.NURSE ---
calling [facility] to [facility] transfer they have to double check and see if IR is in house this week with the holidays
--- NOTE | 2023-08-22 14:42 | EXP.SURG.CON ---
History of Present Illness *Admission Date: 08/22/23 *Reason for visit:: Abdominal pain *History of present illness: Patient is a 57-year-old female who had been admitted on 07/31/2023 with moderately complicated diverticulitis. She has a prior history of lung cancer, PTSD, anxiety, hypertension, hyperlipidemia, tobacco abuse, Jose Manuel's granulomatosis. When she presented to the emergency department on 07/31/2023 she was found to have a leukocytosis of 18,200. CT scan of the abdomen and pelvis revealed findings of acute diverticulitis with some mild pericolonic extraluminal air and fluid around the sigmoid colon and pelvis with findings of mild ileus. She was admitted with aggressive but nonoperative management. Her leukocytosis improved significantly. She had been discharged on intravenous Invanz which she completed last week. Apparently she has had some progressive pain over several days and urinary retention symptoms. She describes pain in the lower abdomen and right lower quadrant area. Patient had been scheduled for follow-up in the office but she had previously not kept her follow-up appointments. She was scheduled to be seen today in the office and contact the office earlier regarding her increase in pain. She states that she had performed digital vaginal examination for her symptoms of urinary retention without relief. She also performed digital self rectal examination for her symptoms of pressure and obstipation. She attempted administration of enema. Given the significance of her pain it was recommended she present to the emergency department. She was found to have a leukocytosis of 19,900. She did have Dan catheter placed with over a liter of urine returned. She underwent CT scan of the abdomen and pelvis which revealed significant interval enlargement of fluid collection in the central pelvis measuring 11.6 x 4.5 cm in size consistent with an abscess. Surgery was contacted. [facility] Disclaimer: The information contained in this section may have been updated after the patient was seen, as this information can be updated by other users. Medical History Carpal tunnel syndrome Eosinophilic granulomatosis with polyangiitis (EGPA) Hyperlipidemia Hypertension Lung cancer TBI (traumatic brain injury) Surgical History H/O: hysterectomy History of lobectomy of lung Total knee replacement status Social History Smoking Status: Current every day smoker alcohol intake: never current occupational status: disabled and other Travel in the last 8 weeks: None Meds Home Medications and Allergies Home Medications Medication Instructions Recorded Confirmed Type atorvastatin 40 mg tablet (Lipitor) 40 mg PO DAILY 07/31/23 08/01/23 History diazepam 10 mg tablet (Valium) 10 mg PO TID 07/31/23 08/01/23 History estrone 5 mg/mL intramuscular 5 mg IM DAILY 07/31/23 08/01/23 History suspension fexofenadine 180 mg tablet 180 mg PO DAILY 07/31/23 08/01/23 History ibuprofen 800 mg tablet 800 mg PO QID 07/31/23 08/01/23 History methocarbamol 750 mg tablet 750 mg PO BID 07/31/23 08/01/23 History metoprolol tartrate 100 mg tablet 100 mg PO DAILY 07/31/23 08/01/23 History omeprazole 40 mg capsule,delayed 40 mg PO BID 07/31/23 08/01/23 History release tizanidine 4 mg tablet 4 mg PO PM 07/31/23 08/01/23 History albuterol sulfate 90 mcg/actuation 2 puff inhalation Q6H PRN 08/01/23 08/01/23 History aerosol inhaler Shortness Of Breath omega 0-nzw-ybv-fish oil 1,000 mg 1 cap PO BID 08/01/23 08/01/23 History (120 mg-180 mg) capsule (Fish Oil) mupirocin 2 % topical ointment 1 applic topical QID 08/02/23 08/02/23 History docusate sodium 100 mg capsule 100 mg PO BIDP PRN Constipation 10 08/07/23 Rx days #20 caps ertapenem 1 gram solution for 1 g IV Q24H 9 days #0 ea 08/07/23
--- NOTE | 2023-08-22 14:42 | PC.NURSE ---
speaking with hospitalist from [facility]
--- NOTE | 2023-08-22 15:04 | PC.NURSE ---
CALLING FOR POSSIBLE TRANSFER
--- NOTE | 2023-08-22 15:44 | PC.NURSE ---
DR MORALES SPEAKING WITH [facility], PT ACCEPTED
== END 2023-08-22 17:06 | disposition short-term general hospital (02) ==
PROVIDERS: Emergency Provider Emergency Medicine
DX: K65.1 Peritoneal abscess (principal); K57.92 Diverticulitis of intestine, part unspecified, without perforation or abscess without bleeding; R10.30 Lower abdominal pain, unspecified; N39.0 Urinary tract infection, site not specified; R33.9 Retention of urine, unspecified; E87.1 Hypo-osmolality and hyponatremia; E87.6 Hypokalemia; E78.5 Hyperlipidemia, unspecified; I10 Essential (primary) hypertension; F17.210 Nicotine dependence, cigarettes, uncomplicated
CPT/HCPCS: 51702; 74177; 80053; 81001; 83605; 83690; 83735; 85007; 85025; 87040; 87086; 93005; 96365; 96367; 96375; 96376; 99291; J2405; Q9967

== ENCOUNTER → 2023-09-11 15:16 | Outpatient (CLI) | payer MEDICARE, OTHER, SELFPAY ==
--- OUTSIDE RECORDS SUMMARY | 2023-09-11 16:05 | XMS_ITS | Clinical Summary ---
Author Name Unknown Address [address] [place] [address] Phone Organization [facility] Address [address] [place] [address] Phone Care Team Providers Care Oil Recovery Unit Operator Name Role Phone Alexandra Champagne Unavailable Conditions or Problems Problem Name Problem Code Onset Date Status Entry Date Provider Comment Standard Description Annotate Strep viridans infection [id number] 109 (SNOMED CT) 11/06 Active 11/06 Ana Cristina L Infection due to Streptococcus viridans group Enterococcal faecalis infection B95.2 (ICD-10-CM) 11/06 Active 11/06 Ana Cristina L Enterococcus as the cause of diseases classified elsewhere Klebsiella pneumoniae infection [id number] (SNOMED CT) 11/06 Active 11/06 Ana Cristina L Bacterial infection due to Klebsiella pneumoniae E. coli infection, non-shiga toxing-produc ing B96.29 (ICD-10-CM) 11/06 Active 11/06 Ana Cristina L Other Escherichia coli [E. coli] as the cause of diseases classified elsewhere Bacteroides fragilis infection B96.6 (ICD-10-CM)
--- OUTSIDE RECORDS SUMMARY | 2023-09-11 16:05 | XMS_ITS ---
Author Name Unknown Address [address] [place] [address] [place] [id number] Phone Organization [facility] Address [address] [facility] [address] [place] [id number] Phone Care Team Providers Care Ferryboat Operator Name Role Phone Salma AMANDA, Rai [facility] [ ] Conditions or Problems No information available. Medications No information available. Medications Administered No information available. Allergies, Adverse Reactions, Alerts No information available. Results Date Name Value Unit Range Flag Description Office Visit: Office Visit: [address] ORALTOBACUSE Never Tobacco smoking status SMOK STATUS Current every da y smoker Tobacco smoking status MEDS REVIEW Done Documenta tion of current medications (procedure) Plan of Care Type Date Detail Appointment 09:15 AM Rai llamas MD, [address] [facility] [address] [place] [address], [phone], Procedures No information available. Vital Signs Date Name Value Unit Description BMI (Body Mass Index) 26.82 kg/m2 Bod y Mass Index (Ratio) Body Temperature 97.7 [degF] temperat ure E&M BP Diastolic 82 mm[Hg] blood pressu re, diastolic BP Systolic 140 mm[Hg] blood pressur e, systolic Heart Rate 88 /min pulse rate Height 65 [in_us] height E&M Respiratory Rate 16 /min respirat ory rate E&M Weight Measured 161.2 [lb_av] weight E& M Immunizations No information available.
[2023-09-11 17:31] LABS: Basophils % 0.4 % (0.1-2.0); Eosinophils # 0.4 K/mm3 (0.0-0.4); Eosinophils % 4.8 % (0.1-12.0); Hematocrit 36.6 % (37.0-47.0); Lymphocytes # 2.3 K/mm3 (0.7-4.5); Lymphocytes % 30.7 % (10-50); Mean Corpuscular HGB Conc 32.8 g/dL (31.8-35.4); Mean Corpuscular Hemoglobin 28.2 pg (27.0-31.2); Mean Platelet Volume 9.5 fl (7.4-10.4); Monocytes # 0.6 K/mm3 (0.1-1.0); Monocytes % 8.2 % (1.7-9.3); Neutrophils # 4.1 K/mm3 (1.8-7.8); Neutrophils % 55.9 % (37.0-80.0); Platelet Count 358 K/mm3 (142-424); Red Blood Count 4.26 M/mm3 (4.20-5.40); Red Cell Distribution Width 16.4 % (11.5-17.5); White Blood Count 7.4 K/mm3 (4.8-10.8)
[2023-09-11 17:48] LABS: Alanine Aminotransferase 22 U/L (12-78); Albumin Level 3.8 g/dl (3.5-5.0); Albumin/Globulin Ratio 1.4 (1.1-1.8); Alkaline Phosphatase 80 U/L (38-126); Aspartate Amino Transferase 27 U/L (14-36); Bilirubin,Total 0.3 mg/dl (0.2-1.3); Blood Urea Nitrogen 7 mg/dl (7-17); Calcium 8.4 mg/dl (8.4-10.2); Carbon Dioxide 26 mmol/L (22.0-30.0); Chloride 105 mmol/L (98-107); Estimated Glomerular Filt Rate 103 ml/min (>60); GFR (African American) 125 ML/MIN (>60); Globulin 2.7 g/dL (1.3-3.2); Glucose 106 mg/dl (74-100); Sodium 138 mmol/L (136-145); Total Protein,Serum 6.5 g/dl (6.3-8.2)
== END ==
PROVIDERS: PCP Internal Medicine Infectious Disease; Visit Provider Internal Medicine Infectious Disease
DX: A41.9 Sepsis, unspecified organism (principal); K65.1 Peritoneal abscess; Z95.9 Presence of cardiac and vascular implant and graft, unspecified
CPT/HCPCS: 80053; 85025

== ENCOUNTER 2024-07-21 06:37 | Emergency (ER) | payer MEDICARE, OTHER, SELFPAY ==
[2024-07-21 06:37] VITALS: BP 155/96; PULSE 60; RESP 18; TEMP 36.8; O2SAT 99; BMI 26.6
--- NOTE | 2024-07-21 06:39 | PC.NURSE ---
Dr. Morel at bedside, place c-collar
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
[2024-07-21] MEDS: KETOROLAC 30MG/ML VIAL 30 MG IV (06:49)
[2024-07-21] MEDS: ACETAMINOPHEN 500MG TAB 1000 MG PO (06:49)
--- NOTE | 2024-07-21 06:59 | PC.NURSE ---
county records management officer at bedside
[2024-07-21 07:00] VITALS: BP 151/83; PULSE 64; O2SAT 99
[2024-07-21 07:03] LABS: Basophils # 0.1 K/mm3 (0-0.2); Basophils % 0.7 % (0.1-2.0); Eosinophils # 0.2 K/mm3 (0.0-0.4); Eosinophils % 1.3 % (0.1-12.0); Hematocrit 37.7 % (37.0-47.0); Hemoglobin 13.9 g/dL (12.2-16.2); Lymphocytes # 1.9 K/mm3 (0.7-4.5); Lymphocytes % 16.1 % (10-50); Mean Corpuscular HGB Conc 36.9 g/dL (31.8-35.4); Mean Corpuscular Hemoglobin 31.6 pg (27.0-31.2); Mean Corpuscular Volume 85.6 fl (81-99); Mean Platelet Volume 7.6 fl (7.4-10.4); Monocytes # 0.9 K/mm3 (0.1-1.0); Monocytes % 7.8 % (1.7-9.3); Neutrophils # 8.6 K/mm3 (1.8-7.8); Neutrophils % 74.2 % (37.0-80.0); Platelet Count 274 K/mm3 (142-424); Red Cell Distribution Width 13.8 % (11.5-17.5); White Blood Count 11.5 K/mm3 (4.8-10.8)
--- NOTE | 2024-07-21 07:07 | PC.NURSE ---
Radiology at bedside
[2024-07-21 07:11] LABS: Albumin Level 4.3 g/dl (3.5-5.0); Chloride 105 mmol/L (98-107); Potassium 3.5 mmoL/L (3.5-5.1); Sodium 138 mmol/L (136-145)
[2024-07-21 07:13] LABS: Blood Urea Nitrogen 12 mg/dl (7-17); Creatinine Clearance Estimated 105 mL/min (50-200); Estimated Glomerular Filt Rate 86 ml/min (>60); GFR (African American) 104 ML/MIN (>60)
[2024-07-21 07:14] LABS: Alanine Aminotransferase 26 U/L (12-78); Albumin/Globulin Ratio 1.4 (1.1-1.8); Alkaline Phosphatase 79 U/L (38-126); Anion Gap 12.5 mEq/L (5-15); Aspartate Amino Transferase 31 U/L (14-36); Bilirubin,Total 0.9 mg/dl (0.2-1.3); Calcium 9.4 mg/dl (8.4-10.2); Carbon Dioxide 24 mmol/L (22.0-30.0); Glucose 99 mg/dl (74-100); Total Protein,Serum 7.3 g/dl (6.3-8.2)
[2024-07-21 08:00] VITALS: BP 163/91; PULSE 83; O2SAT 97
[2024-07-21] MEDS: 0.9 % SODIUM CHLORIDE 50 ML VIAL IV (08:01)
[2024-07-21] MEDS: SODIUM CHLORIDE 0.9% 10ML SYR (RAD ONLY) 10 ML IV (08:01)
[2024-07-21] MEDS: IOPAMIDOL-370 (76%);100ML BOTTLE 160 ML IV (08:01)
[2024-07-21 08:09] LABS: HIV (1&2) Antibody Rapid NONREACTIVE (NONREACTIVE)
--- NOTE | 2024-07-21 08:23 | PC.NURSE ---
c-spine cleared by md, c-collar removed. pt c/o left elbow pain 03/11. pt repositioned in bed, call light within reach. water at bedside
[2024-07-21 09:00] VITALS: BP 165/95; PULSE 75; O2SAT 97
--- NOTE | 2024-07-21 09:00 | PC.NURSE ---
Dr. Smith is at bedside with the patient.
[2024-07-21 09:22] VITALS: BP 165/95; PULSE 67; RESP 20; TEMP 36.8; O2SAT 97
[2024-07-23 05:16] LABS: HCV Ab Non Reactive (Non Reactive)
== END 2024-07-21 09:51 | disposition home or self-care (01) ==
PROVIDERS: Emergency Provider Emergency Medicine
DX: M25.552 Pain in left hip (principal); M25.522 Pain in left elbow; M54.2 Cervicalgia; M25.562 Pain in left knee; M54.9 Dorsalgia, unspecified; R07.89 Other chest pain; R10.9 Unspecified abdominal pain; Y09 Assault by unspecified means
CPT/HCPCS: 70450; 70498; 71275; 72125; 72128; 72131; 73080; 73562; 74174; 80053; 85025; 86803; 87389; 96374; 99285; J1885; Q9967

== ENCOUNTER 2025-04-03 15:42 | Emergency (ER) | payer MEDICARE, OTHER, SELFPAY ==
--- OUTSIDE RECORDS SUMMARY | 2003-01-20 09:45 | XMS_ITS | Continuity of Care Document ---
Author Organization [facility] e Address [address] [place] [address] Phone Care Team Providers Care Cuff Stitcher Name Role Phone Astrid Juárez OD Unavailable Unavailable Advance Directives Directive Yes / No Effective Date File Name No Information Encounters Encounter Description Practice Location Reason(s) For Visit Diagnoses Date Provider Providers Copied on Encounter [facility], [address], [place], [place], [id number], [place] tel:[phone] [facility] No Information [facility]. [address], [place], [place], [id number], [place]. tel:[phone] Family History Family Member Type Diagnosis Age At Onset No Information Payers Payer name Insurance type Covered alliance party ID Authoriza tion(s) No Information Social History Type Description Quantity Date Captured Comments Sex Female Smoking Status No Information Chief Complaint And Reason For Visit No Information Reason For Referral Reason For Referral No Information History Of Present Illness Encounter Date Complaint History Of Prese nt Illness No Information Functional Status Date Functional Assessmen t No Information Instructions Date Instruction Additional Infor mation No Information Assessments Type Assessment Date No Information Patient Care Teams Name Effective Dates (start - stop) Status Members No Information
--- OUTSIDE RECORDS SUMMARY | 2016-03-23 10:26 | XMS_ITS | Continuity of Care Document ---
Author Organization [facility] Address [address] [address] Phone Care Team Providers Care Americanization Teacher Name Role Phone Chente Viveros MD Unavailable Unavailable Allergies, Adverse Reactions, Alerts Substance Reaction Status Criticality POTASSIUM CLAVULANATE Active No Inf ormation AMOXICILLIN TRIHYDRATE Active No In formation WARNIN allergy(ies) could not be collected because the type is not supported. Please contact the source practice for further details. Medications Medication Instructions Dosage Effective Dates (start - stop) Status Comments hydrochlorothiazide 25 mg tablet take 1 tablet (25MG) by oral route every day 25 MG - Active Celexa 40 mg tablet take 1 tablet po daily - Active 1+3 butalbital-acetaminophen -caffeine 50 mg-325 mg-40 mg tablet take 1 tablet po QID PRN Headache - Active ropinirole 1 mg tablet take 1 tablet (1MG) po qhs - Active 1+3 promethazine 25 mg tablet take 1 tablet po QID PRN - Active oxycodone 10 mg tablet take 1 tablet po QID PRN PAIN - Active stop norco ketorolac 10 mg tablet take 1 tablet po TID as needed for up to 5 days total use - Active Aricept 5 mg tablet take 1 tablet by oral route every day in the evening 5 MG - Active Flurb/ketam/trama/bupiv/ cloni DIRECTED - Active apply up to 4.8grams(3 pumps) to painful areas up to 5 times a day. Max dosage is 24 gms. Mobic 15 mg tablet take 1 tablet (15MG) by oral route every day - Active Keppra 1,000 mg tablet take 1Tablet by Oral route bid - Active pls note change in direction .pls cx previous rx and its refills Nadine 180 mg tablet take 1 tablet (180MG) by oral route every day - Active Zanaflex 4 mg tablet take 1 tab 2 times daily - Active Nexium 40 mg capsule,delayed release take 1 capsule (40MG) by oral route every day - Active Ambien 10 mg tablet take 1 tablet (10MG) by oral route every day at bedtime 10 MG - Active must be 30 days apart, thank you Fioricet 50 mg-325 mg-40 mg tablet take 1 tablet po QID PRN - Active Bystolic 10 mg tablet take 1 tablet (10MG) by oral route every day 10 MG - Active pls note change in direction pls cx previous rx and any refills Proventil HFA 90 mcg/actuation Aerosol Inhaler inhale 2 puff by inhalation route every 4 - 6 hours as needed - Active Flonase 50 mcg/actuation Nasal [place] inhale 2 spray by Intranasal route every day in each nostril 2 spray - Active Lipitor 20 mg Tab take 1 tablet (20MG) by oral route every day 20 MG - Active Astelin 137 mcg Nasal [place] Aerosol spray 2 spray by intranasal route 2 times every day in each nostril - Active Singulair 10 mg Tab take 1 tablet (10MG) by oral route every day in the evening 10 MG - Active hydrochlorothiazide 25 mg tablet take 1 tablet (25MG) by oral route every day 25 MG - No Longer Active Procedures Procedure Date OFFICE/OUTPATIENT VISIT, EST NRV CNDJ TEST 13/> STUDIES Needle Emg W/muscle Testing 5 Or More Mu scles CHEMODENERV MUSC MIGRAINE Botulinum toxin a per unit Botulinum toxin a per unit OFFICE/OUTPATIENT VISIT, EST Destroy Nerve, Face Muscle Chemodenervation Neck Muscle Botulinum toxin a per unit Botulinum toxin a per unit Normal saline solution infus Destroy Nerve, Face Muscle Chemodenervation Neck Muscle Botulinum toxin a per unit Botulinum toxin a per unit Normal saline solution infus Destroy Nerve, Face Muscle Chemodenervation Neck Muscle Botulinum toxin a per unit Botulinum toxin a per unit Normal saline solution infus Surgical trays Inj Tendon Sheath/ligament Inj Tendon Sheath/ligament Inj Tendon Sheath/ligament Inj Tendon Sheath/ligament Inj Tendon Sheath/ligament Inj Tendon Sheath/ligament Inj Tendon Sheath/ligament Inj Tendon Sheath/ligament kenalog 10mg (Triamcinolone acetonide in j) Injection, bupivicaine hydro Inj Spine C/T Methylprednisolone 40 MG inj Normal saline solution infus Surgical trays Inj Tendon Sheath/ligament Inj Tendon Sheath/ligament Inj Tendon Sheath/ligament Inj Tendon Sheath/ligament Inj Tendon Sheath/ligament Inj Tendon Sheath/ligament Inj Tendon Sheath/ligament Inj Tendon Sheath/ligament kenalog 10mg (Triamcinolone acetonide in j) Injection, bupivicaine hydro CHEMODENERV MUSC MIGRAINE Botulinum toxin a per unit Normal saline solution infus OFFICE/OUTPATIENT VISIT, EST CHEMODENERV MUSC MIGRAINE CHEMODENERV MUSC MIGRAINE Chemodenervation Neck Muscle Botulinum toxin a per unit Normal saline solution infus OFFICE/OUTPATIENT VISIT, EST OFFICE/OUTPATIENT VISIT, EST OFFICE/OUTPATIENT VISIT, EST OFFICE/OUTPATIENT VISIT, EST POLYSOMNOGRAPHY, 4 OR MORE EEG, AWAKE AND DROWSY OFFICE/OUTPATIENT VISIT, EST OFFICE/OUTPATIENT VISIT, EST EEG, AWAKE AND ASLEEP SUBSEQUENT HOSPITAL CARE SUBSEQUENT HOSPITAL CARE Inj Spine C/T Methylprednisolone 40 MG inj Normal saline solution infus Muscle Test, 4 Extremities Motor Nerve Conduction Test Sensory Nerve Conduction Test 2 H-Reflex Test H-Reflex Test Evoked Potential Upper & Lower Limbs Apr OFFICE/OUTPATIENT VISIT, EST Advance Directives Directive Yes / No Effective Date File Name No Information Encounters Encounter Description Practice Location Reason(s) For Visit Diagnoses Date Provider Providers Copied on Encounter Chente Viveros M.D., P.A., [address] [place] [address], [id number] , tel: [phone] Chente Viveros M.D., P.A. [place] No Information 6 Felice Eldridge. [address] [place] [address], [id number] , [place]. tel: [phone] Chente Viveros M.D., P.A., [address] [place] [address], [id number] , tel: [phone] Chente Viveros M.D., P.A[facility] [place] No Information 2-201 6 Felice Eldridge. [address] [place] [address], [id number] , [place]. tel: OFFICE/OUTPA TIENT VISIT, RENU Viveros M.D., P.A., [address] [place] [address], [id number] , tel: Chente Viveros M.D., P.A. [place] Follow Up of Neck Pain (chief complaint) Cervical disc disorder w radiculopathy, mid-cervical regionMigraine with aura, intractable, without status migrainosusPost traumatic seizures 6 Felice Eldridge. [address] [place] [address], [id number] , [place]. tel: Referring Provider: Billy Flores, [address] [place] [address], [facility]. tel: Chente Viveros M.D., P.A., [address] [place] [address], [address] [place] [address] , tel: Chente Viveros M.D., P.A. [place] No Information 6 Felice Eldridge. [address] [place] [address], [id number] , [place]. tel: Chente Viveros M.D., P.A., [address] [place] [address], [address] [place] [address] , tel: Chente Viveros M.D., P.A. [place] No Information 6 Felicepaula Eldridge. [address] [place] [address], [id number] , [place]. tel: Referring Provider: Billy Flores, [address] [place] [address], [id number]. tel: OFFICE/OUTPA TIENT VISIT, RENU Viveros M.D., P.A., [address] [place] [address], [address] [place] [address] , tel:[phone] Chente Viveros M.D., P.A. [place] Follow Up of Headache (chief complaint) Neck Pain (chief complaint) Post traumatic seizuresMigraine with aura, intractable, without status migrainosusCervical disc disorder w radiculopathy, mid-cervical region 6 Felice Eldridge. [address] [place] [address], [address] [place] [address] , [place]. tel:[phone] Referring Provider: Billy Flores, [address] [place] [address], [id number]. tel: Chente Viveros M.D., P.A., [address] [place] [address], [address] [place] [address] , tel: Chente Viveros M.D., P.A. [place] Follow Up of Headache (chief complaint) Follow Up of Botox injection (chief complaint) No Information 5 Felice Eldridge. [address] [place] [address], [address] [place] [address] , [place]. tel:[phone] Referring Provider: Billy Flores, [address] [place] [address], [address]. tel: Chente Viveros M.D., P.A., [address] [place] [address], [id number] , tel: Chente Viveros M.D., P.A. [place] botox (chief complaint) Follow Up of Headache (chief complaint) No Information 5 Felice Eldridge. [address] [place] [address], [id number] , [place]. tel:[phone] Referring Provider: Billy Flores, [address] [place] [address], [id number]. tel: Chente Viveros M.D., P.A., [address] [place] [address], [address] [place] [address] , tel: [phone] Chente Viveros M.D., P.A. [place] No Information Apr-3 0-201 5 Felice Eldridge. [address] [place] [address], [id number] , . tel: [phone] Chente Viveros M.D., P.A., [address] [place] [address], [id number] , tel:[phone] Chente Viveros M.D., P.A. [place] No Information Apr-1 7-201 5 Felice Eldridge. [address] [place] [address], [id number] , [place]. tel:[phone] Chente Viveros M.D., P.A., [address] [place] [address], [id number] , tel:[phone] Chente Viveros M.D., P.A. [place] No Information Apr-1 6-201 5 Felice Eldridge. [address] [place] [address], [id number] , [place]. tel:[phone] Chente Viveros M.D., P.A., [address] [place] [address], [id number] , tel:[phone] Chente Viveros M.D., P.A. [place] botox (chief complaint) headache (chief complaint) No Information Dec-0 1-201 4 Felice Eldridge. [address] [place] [address], [id number] , [place]. tel:[phone] Referring Provider: Billy Flores, [address] [place] [address], [address]. tel: Chente Viveros M.D., P.AJean, [address] [place] [address], [id number] , tel:[phone] Chente Viveros M.D., P.A. [place] No Information Nov-0 3-201 4 Felice Chente. [address] [place] [address], [id number] , [place]. tel: Referring Provider: Billy Flores, [address] [place] [address], [address]. tel: Chente Viveros M.D., P.A., [address] [place] [address], [id number] , tel: Chente Viveros M.D., P.A. [place] No Information 4 Felice Eldridge. [address] [place] [address], [id number] , [place]. tel: Referring Provider: Billy Flores, [address] [place] [address], [id number]. tel: OFFICE/OUTPA TIENT VISIT, EST Chente Viveros M.D., P.A., [address] [place] [address], [id number] , tel: Chente Viveros M.D., P.A. [place] PSYMOTR EPIL W INTR EPILDISC DIS NEC/NOS-LUMBARMigra ineOSTEOARTHROS NOS-UNSPEC 4 Felice Eldridge. [address] [place] [address], [id number] , [place]. tel: Referring Provider: Billy Flores, [address] [place] [address], [id number]. tel: Chente Viveros M.D., P.A., [address] [place] [address], [id number] , [place] tel: Chente Viveros M.D., P.A. [place] No Information 4 Felice Eldridge. [address] [place] [address], [id number] , [place]. tel: Referring Provider: Billy Flores, [address] [place] [address], [address]. tel: OFFICE/OUTPA TIENT VISIT, RENU Viveros M.D., P.A., [address] [place] [address], [id number] , tel:[phone] Chente Viveros M.D., P.A. [place] PSYMOTR EPIL W INTR EPILDISC DIS NEC/NOS-LUMBARMigra ineOSTEOARTHROS NOS-UNSPEC Dec- 4 Felice Eldridge. [address] [place] [address], [id number] , [place]. tel:[phone] Referring Provider: Billy Flores, [address] [place] [address], [id number]. tel:[phone] OFFICE/OUTPA TIENT VISIT, RENU Viveros M.D., P.A., [address] [place] [address], [id number] , tel:[phone] Chente Viveros M.D., P.A. [place] No Information 4 Felice Eldridge. [address] [place] [address], [id number] , [place]. tel:[phone] Referring Provider: Billy Flores, [address] [place], [address]. tel: OFFICE/OUTPA TIENT VISIT, RENU Viveros M.D., P.A., [address] [place] [address], [id number] , [place] tel:[phone] Chente Viveros M.D., P.A. [place] PSYMOTR EPIL W INTR EPILDISC DIS NEC/NOS-LUMBARCLSC MGRN W NTRC MGR STD 4 Felice Eldridge. [address] [place] [address], [id number] , [place]. tel: [phone] Referring Provider: Billy Flores, [address] [place], [address]. tel:[phone] Chente Viveros M.D., P.A., [address] [place] [address], [id number] , [place] tel: [phone] Chente Viveros M.D., P.A. [place] INJ (chief complaint) MigrainePOST TRAUMATIC SEIZURESCERVICAL DISC DEGENDISC DIS NEC/NOS-LUMBARPOSTC ONCUSSION SYNDROMEMYALGIA AND MYOSITIS NOS 4 Felice Eldridge. [address] [place] [address], [id number] , [place]. tel: [phone] Referring Provider: Billy Flores, [address] [place] [address], [facility]. tel:[phone] OFFICE/OUTPA TIENT VISIT, EST Chente Viveros M.D., P.A., [address] [place] [address], [id number] , [place] tel: [phone] [facility] No Information 3 Felice Eldridge. [address] [place] [address], [id number] , [place]. [phone] Referring Provider: Chente Viveros, [address] [place] [address], [id number] . tel:[phone] Chente Viveros M.D., P.A., [address] [place] [address], [id number] , tel:[phone] [facility] PSYMOTR EPIL W INTR EPILCLSC MGRN W NTRC MGR STDRadiculitis, Thoracic or LumbarOSTEOARTHROS NOS-UNSPEC 3 Felice Eldridge. [address] [place] [address], [id number] , [place]. tel:[phone] Referring Provider: Chente Viveros, [address] [place] [address], [id number] . tel:[phone] Chente Viveros M.D., P.A., [address] [place] [address], [id number] , tel: [phone] Chente Viveros M.D., P.A. [place] No Information 3 Felice Eldridge. [address] [place] [address], [id number] , [place]. tel: [phone] OFFICE/OUTPA TIENT VISIT, EST Chente Viveros M.D., P.A., [address] [place] [address], [id number] , [place] tel: [phone] Chente Viveros M.D., P.A. [place] back pain (chief complaint) epilepsy (chief complaint) Radiculitis, Thoracic or LumbarPSYMOTR EPIL W INTR EPILCLSC MGRN W NTRC MGR STD 3 Felice Eldridge. [address] [place] [address], [address] [place] [address] , [place]. tel: [phone] Referring Provider: Chente Viveros, [address] [place] [address], [address] [place] [address] . tel:[phone] OFFICE/OUTPA TIENT VISIT, EST Chente Viveros M.D., P.A., [address] [place] [address], [id number] , tel: [phone] Chente Viveros M.D., P.A. [place] inj (chief complaint) No Information 3 Felice Eldridge. [address] [place] [address], [address] [place] [address] , [place]. tel:[phone] Referring Provider: Chente Viveros, [address] [place] [address], [address] [place] [address] . tel:[phone] Chente Viveros M.D., P.A., [address] [place] [address], [id number] , [phone] [facility] [place] No Information 3 Felice Eldridge. [address] [place] [address], [id number] , [place]. tel: [phone] [facility] Chente Viveros M.D., P.A., [address] [place] [address], [place], [place], [id number] , [place] tel: [phone] [facility] [place] No Information 3 Felice Eldridge. [address] [place] [address], [id number] , [place]. tel: [phone] Referring Provider: Chente Viveros, [address] [place] [address], [address] [place] [address] . tel:[phone] Chente Viveros M.D., P.A., [address] [place] [address], [address] [place] [address] , tel: [phone] Chente Viveros M.D., P.A. [place] No Information 3 Felice Eldridge. [address] [place] [address], [address] [place] [address] , [place]. tel: [phone] Referring Provider: Chente Viveros, [address] [place] [address], [address] [place] [address] . tel:[phone] Chente Viveros M.D., P.A., [address] [place] [address], [address] [place] [address] , tel: [phone] Chente Viveros M.D., P.A. [place] No Information 2 Felice Eldridge. [address] [place] [address], [address] [place] [address] , [place]. tel: [phone] Referring Provider: Chente Viveros, [address] [place] [address], [address] [place] [address] . tel:[phone] Chente Viveros M.D., P.A., [address] [place] [address], [address] [place] [address] , tel: [phone] Chente Viveros M.D., P.A. [place] No Information 2 Felice Eldridge. [address] [place] [address], [address] [place] [address] , . tel: [phone] Referring Provider: Chente Viveros, [address] [place] [address], [address] [place] [address] . tel:[phone] Chente Viveros M.D., P.A., [address] [place] [address], [address] [place] [address] , tel: [phone] Chente Viveros M.D., P.A. [place] neck pain (chief complaint) knee pain (chief complaint) back pain (chief complaint) headache (chief complaint) No Information 2 Felice Eldridge. [address] [place] [address], [address] [place] [address] , . tel: [phone] Referring Provider: Chente Viveros, [address] [place] [address], [address] [place] [address] . tel:[phone] OFFICE/OUTPA TIENT VISIT, EST Chente Viveros M.D., P.A., [address] [place] [address], [address] [place] [address] , tel: [phone] Chente Viveros M.D., P.A. [place] No Information 2-200 8 Felice Chente. [address] [place] [address], [address] [place] [address] , . tel:[phone] Referring Provider: Chente Viveros, [address] [place] [address], [id number] . tel:[phone] Family History Family Member Type Diagnosis Age At Onset Problem (finding) Family history of Renal disease Problem (finding) Family history of raise d blood lipids Father Problem (finding) Renal disease (Cause Of ) Problem (finding) Family history of Diabe reina mellitus Father Problem (finding) Problem (finding) Family history of Thyro id disorder Problem (finding) Family history of Spina l disease, lumbar Problem (finding) Family history of attention deficit hyperactivity disorder Mother Problem (finding) Alive and well spouse Problem (finding) Alive and well Problem (finding) Family history of Spinal disease, cervical Problem (finding) Family history of strok e Problem (finding) Family history of depre ssion Problem (finding) Family history of heada jena Problem (finding) Family history of Heari ng impairment Brother Problem (finding) Alive and well Problem (finding) Family history of hyper tension Payers Payer name Insurance type Covered constitution party ID Soni denney(s) [employer] [id number] Social History Type Description Quantity Date Captured Comments Sex Female Smoking Status No Information Chief Complaint And Reason For Visit No Information Reason For Referral Reason For Referral No Information History Of Present Illness Encounter Date Complaint History Of Prese nt Illness Follow Up of Neck Pain Onset: gr adual. The problem is severe. Duration: varies. The problem has worsened. The frequency of pain is daily. Location of pain is bilateral anterior neck, bilateral lateral neck, bilateral posterior neck, bilateral shoulder, bilateral arm, bilateral upper back, bilateral scapula, bilateral interscapular and bilateral mid back. There is radiation of pain to the right hand, right thumb, right index finger and right 5th finger. The patient describes the pain as discomforting and stabbing. Relieving factors include injection. Associated symptoms include joint pain. Pertinent negatives include bladder incontinence, rash and weight loss. Neck Pain The severity of the problem is moderate. The problem has worsened. The frequency of pain is constant. Location of pain is right posterior neck, right shoulder and right arm. There is radiation of pain to the right upper arm, right elbow and right forearm. The patient describes the pain as aching, discomforting, dull and gnawing. The event(s) surrounding the occurrence of the symptom include bending over, injury and lifting. Aggravating factors include pushing, rotation, running, stooping and straining. Pertinent negatives include bladder incontinence, bowel incontinence, rash and weight loss. Additional information: History of head injury and neck injury. Reports increasing weakness in right arm. Follow Up of Headache Onset: mckayla den. Severity: incapacitating. It occurs daily, has varies duration, and is worse. Location is frontal left, frontal right, ocular left, ocular right and vertex. There is radiation to neck, shoulders and upper thoracic area. The describes it as blinding, debilitating, lancinating, pressure, sharp, stabbing and throbbing. Timing of headache: daytime, upon awakening, weekday and weekend. Symptom is aggravated by allergies, bright lights and valsalva. Associated symptoms include blurred vision, clear sinus drainage, dizziness, memory impairment, nausea, performance changes, personality change, phonophobia, photophobia, scintillations, URI like symptoms, vertigo, vision loss left, vision loss right and visual aura. Pertinent negatives include neck stiffness, scotoma and vomiting. Additional information: childhood motion sickness, sleepwalking and Legs actually controlled with the use of Botox. Follow Up of Headache It occurs intermittently, has more than one hour duration, and is unchanged. Location is entire head. There is radiation to neck and shoulders. The patient describes it as blinding, debilitating, pressure, sharp and stabbing. Context: family history of migraine and history of migraine. Symptom is aggravated by allergies, anxiety, bright lights and exercise. Relieving factors include bath, darkness, decongestants, heat, ice and prescription drugs. Associated symptoms include blurred vision, clear sinus drainage, dizziness, double vision, memory impairment, nausea, photophobia, vertigo, visual aura and vomiting. Additional information: childhood motion sickness. Follow Up of Botox injection Follow Up of Headache Severity: severe. It occurs weekly. The problem is improving. Location is frontal left, frontal right, ocular left, ocular right and vertex. There is radiation to neck and shoulders. The describes it as blinding, debilitating, lancinating and throbbing. Timing of headache: daytime and upon awakening. Context: family history of migraine, history of migraine and recent head trauma. Symptom is aggravated by allergies, anxiety, head position, valsalva and weather. Relieving factors include prescription drugs. Associated symptoms include blurred vision, clear sinus drainage, dizziness, double vision, loss of consciousness, memory impairment, nausea, neck stiffness, performance changes, personality change, scotoma, URI like symptoms, visual aura and vomiting. Additional information: childhood motion sickness. botox headache Onset: gradual. Severity: 8. It occurs weekly. The problem is unchanged. Location is entire head, frontal left and frontal right. The patient describes it as debilitating and throbbing. Timing of headache: daytime, weekday and weekend. Context: family history of migraine. Symptom is aggravated by allergies and bright lights. Relieving factors include darkness, heat, ice and prescription drugs. Associated symptoms include blurred vision, clear sinus drainage, dizziness, memory impairment, nausea, neck stiffness, vertigo, visual aura and vomiting. Additional information: childhood motion sickness. botox Functional Status Date Functional Assessmen t No Information Instructions Date Instruction Additional Infor adin Continue all medicin es the same. Add prednisone 60 mg 6 day taper.Return in 3 months. 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 Change Marissa to OxyIR 10 one 4 times a dayReturn tomorrow for EMG studies. Related to Cervical disc disorder w radiculopathy, mid-cervical region Call if symptoms persist Call if symptoms persist Call if symptoms persist Call if symptoms persist Call if symptoms persist Call if symptoms persist Call if symptoms persist Call if symptoms persist Call if symptoms persist Assessments Type Assessment Date No Information Patient Care Teams Name Effective Dates (start - stop) Status Members No Information
[2025-04-03] VITALS (19 sets, daily range): BP systolic 127–179; BP diastolic 85–119; PULSE 86–106; RESP 14–26; TEMP 36.4–37.4; O2SAT 95–99; BMI 29.9
--- NOTE | 2025-04-03 15:56 | XR_ITS ---
PROCEDURE INFORMATION: Exam: XR Chest Exam date and time: 04/03/2025 5:31 PM Age: 59 years old Clinical indication: Other: AMS; Additional info: Altered mental status TECHNIQUE: Imaging protocol: Radiologic exam of the chest. Views: 1 view. COMPARISON: CT ANGIO CHEST 07/21/2024 7:48 AM FINDINGS: Lungs: Postsurgical changes to the right lung with chain suture material at the thoracic apex. Pleural spaces: Low lung volumes are present without pleural effusions or consolidations that project above the diaphragm. Heart/Mediastinum: Unremarkable. No cardiomegaly. Bones/joints: Unremarkable. IMPRESSION: Low lung volumes are present without pleural effusions or consolidations that project above the diaphragm. Postsurgical changes to the right lung with chain suture material at the thoracic apex.
--- NOTE | 2025-04-03 15:57 | CT_ITS ---
PROCEDURE INFORMATION: Exam: CT Head Without Contrast Exam date and time: 04/03/2025 5:30 PM Age: 59 years old Clinical indication: Altered mental status/memory loss TECHNIQUE: Imaging protocol: Computed tomography of the head without contrast. Radiation optimization: All CT scans at this facility use at least one of these dose optimization techniques: automated exposure control; mA and/or kV adjustment per patient size (includes targeted exams where dose is matched to clinical indication); or iterative reconstruction. COMPARISON: CT HEAD/BRAIN WO CON 07/21/2024 7:36 AM FINDINGS: Brain: There is mild diffuse cerebral volume loss present. Multiple subcortical and deep hypoattenuating white matter foci are present, likely related to small vessel senescent changes and can also be seen with prior infectious / inflammatory insult, or prior traumatic events. No hyperattenuating foci are identified to suggest acute intracranial hemorrhage. Cerebral ventricles: No ventriculomegaly. Paranasal sinuses: Moderate right maxillary sinus polypoid mucosal thickening is present. Mastoid air cells: Visualized mastoid air cells are well aerated. Bones: Unremarkable. No acute fracture. Soft tissues: Unremarkable. IMPRESSION: 1. Multiple subcortical and deep hypoattenuating white matter foci are present, likely related to small vessel senescent changes and can also be seen with prior infectious / inflammatory insult, or prior traumatic events. 2. No hyperattenuating foci are identified to suggest acute intracranial hemorrhage.
[2025-04-03 16:04] LABS: Hematocrit 40.8 % (37.0-47.0); Hemoglobin 14.2 g/dL (12.2-16.2); Immature Granulocytes % 0.9 %; Mean Corpuscular HGB Conc 34.8 g/dL (31.8-35.4); Mean Corpuscular Hemoglobin 29.5 pg (27.0-31.2); Mean Corpuscular Volume 84.8 fl (81-99); Nucleated Red Blood Cells % 0 %; Platelet Count 406 K/mm3 (142-424); Red Blood Count 4.81 M/mm3 (4.20-5.40); Red Cell Distribution Width-SD 39.8 fL; White Blood Count 10.8 K/mm3 (4.8-10.8)
[2025-04-03 16:06] LABS: Albumin Level 4.4 g/dl (3.5-5.0); Chloride 99 mmol/L (98-107); Sodium 137 mmol/L (136-145)
--- OUTSIDE RECORDS SUMMARY | 2025-04-03 16:07 | XMS_ITS | Clinical Summary ---
Author Organization [facility] Address [address] [place] [address] Phone Care Team Providers Care Chili Pepper Grinder Name Role Phone Salma AMANDA, Rai Camara [phone] [ ] Conditions or Problems Problem Name Problem Code Onset Date Status Entry Date Provider Comment Standard Description Annotate Strep viridans infection 372263722835 109 (SNOMED CT) 11/06 Active 11/06 Ana Cristina Magan Infection caused by Streptococcus viridans group Enterococcal faecalis infection B95.2 (ICD-10-CM) 11/06 Active 11/06 Ana Cristina Magan Enterococcus as the cause of diseases classified elsewhere Klebsiella pneumoniae infection [id number] (SNOMED CT) 11/06 Active 11/06 Ana Cristina Magan Bacterial infection caused by Klebsiella pneumoniae E. coli infection, non-shiga toxing-produc ing B96.29 (ICD-10-CM) 11/06 Active 11/06 Ana Cristina Magan Other Escherichia coli [E. coli] as the cause of diseases classified elsewhere Bacteroides fragilis infection B96.6 (ICD-10-CM) 11/06 Active 11/06 Ana Cristina Magan Bacteroides fragilis [B. fragilis] as the cause of diseases classified elsewhere Candidiasis infection B37.89 (ICD-10-CM) 11/06 Active 11/06 Ana Cristina Magan Other sites of candidiasis Diverticuliti s of large intestine with abscess without bleeding K57.20 (ICD-10-CM) 11/06 Active 11/06 Ana Cristina Magan Diverticulitis of large intestine with perforation and abscess without bleeding PTSD [id number] (SNOMED CT) 11/06 Active 11/06 Ana Cristina Carrero Posttraumatic stress disorder [facility]ign [facility] 11/06 Active 11/06 Ana Cristina Carrero Benign hypertension Medications Medication Instructions Start Date Stop Date Generic Name NDC Provider MYCAMINE 50 MG SOLR Mycamine 100mg IV [id number] /[facility] 11/15 micafungin [id number] Sagrario Casey RN ZOSYN 2-0.25 GM/50ML SOLN Zosyn 13.5G IV q24hrs continuous-BIOS CRIP/[facility] 11/15 piperacillin-tazo bactam-dextrs [id number] Sagrario Casey RN ZOSYN 2-0.25 GM/50ML SOLN Zosyn 13.5G IV q24hrs continuous-BIOS CRIP/[facility] 10 piperacillin-tazo bactam-dextrs [id number] Sagrario Casey RN MYCAMINE 50 MG SOLR Mycamine 100mg IV [id number] /[facility] 0 08 micafungin [id number] Sagrario Casey RN QUETIAPINE FUMARATE 300 MG TABS Take 0.5 tablets (150 mg total) by mouth every night as needed (Sleep). quetiapine [id number] QIE qieuser PHENAZOPYRIDINE HCL 200 MG TABS Take 1 tablet (200 mg total) by mouth 3 (three) times daily as needed for Pain. phenazopyridine [id number] QIE qieuser OXYCODONE-ACETAMIN OPHEN 5-325 MG TABS Take 1 tablet by mouth every 6 (six) hours as needed for Pain. oxycodone-acetami nophen [id number] QIE qieuser OMEPRAZOLE 20 MG CPDR Take 2 capsules (40 mg total) by mouth daily. omeprazole [id number] QIE qieuser omega 3-gqa-egx-fish oil capsule Take 1 capsule (1,000 mg total) by mouth 2 (two) times daily. omega 9-eub-cvk-fish oil capsule QIE qieuser METOPROLOL SUCCINATE ER 100 MG [id number] Take 0.5 tablets (50 mg total) by mouth daily. metoprolol succinate [id number] QIE qieuser LEVETIRACETAM 1000 MG TABS Take 1 tablet (1,000 mg total) by mouth 2 (two) times daily. levetiracetam [id number] QIE qieuser HYDROXYZINE HCL 25 MG TABS Take 1 tablet (25 mg total) by mouth every 6 (six) hours as needed for Itching or Anxiety. hydroxyzine hcl [id number] QIE qieuser FEXOFENADINE HCL 180 MG TABS Take 1 tablet (180 mg total) by mouth daily. fexofenadine [id number] QIE qieuser estrogens, conjugated, Take 1 tablet (0.3 mg total) by mouth daily. PREMARIN QIE qieuser DOCUSATE SODIUM 100 MG CAPS Take 1 capsule (100 mg total) by mouth 2 (two) times daily as needed for Constipation. docusate sodium [id number] QIE qieuser ALBUTEROL SULFATE HFA 108 (90 Base) MCG/ACT AERS Inhale 2 puffs by mouth via inhaler every 6 (six) hours as needed for Wheezing. albuterol sulfate [id number] QIE qieuser Medications Administered No information available. Allergies, Adverse Reactions, Alerts No information available. Results Date Name Value Unit Range Flag Description Chart Maintenance PLATELETS 358 10*3/mm3 Platelets [#/volume] in Blood by Automated count HCT 36.6 % Hematocrit [V olume Fraction] of Blood by Automated count HGB 12.0 g/dL Hemoglobin [Mass/volume] in Blood RBC 4.26 10*6/mm3 Erythrocytes [#/volume] in Blood by Automated count WBC 7.4 10*3/mm3 Leukocytes [ #/volume] in Blood by Automated count BILI TOTAL 0.3 mg/dL Bilirubin. total [Mass/volume] in Serum or Plasma SGOT (AST) 27 U/L Aspartate aminotransferase [Enzymatic activity/volume] in Serum or Plasma SGPT (ALT) 22 U/L Alanine aminotransferase [Enzymatic activity/volume] in Serum or Plasma ALK PHOS 80 U/L Alkaline flores sphatase [Enzymatic activity/volume] in Blood CREATININE 0.6 mg/dL Creatinine [Mass/volume] in Serum or Plasma BUN 7 mg/dL Urea nitrogen [Mass/volume] in Serum or Plasma CALCIUM 8.4 mg/dL Calcium [Mole s/volume] in Serum or Plasma POTASSIUM 4.0 mmol/L Potassium [Moles/volume] in Serum or Plasma SODIUM 138 mmol/L Sodium [Moles /volume] in Serum or Plasma GLUCOSE SER 106 mg/dL Glucose [ Mass/volume] in Serum or Plasma Office Visit: Office Visit: 12 ORALTOBACUSE Never Tobacco smoking status SMOK STATUS Current every day smoker Tobacco smoking status MEDS REVIEW Done Documenta tion of current medications (procedure) Plan of Care No information available. Procedures No information available. Vital Signs Date Name Value Unit Description BMI (Body Mass Index) 26.19 kg/m2 Bod y Mass Index (Ratio) Body Temperature 97.7 [degF] temperat ure E&M BP Diastolic 80 mm[Hg] blood pressu re, diastolic BP Systolic 148 mm[Hg] blood pressur e, systolic Heart Rate 80 /min pulse rate Height 65 [in_us] height E&M Respiratory Rate 16 /min respirat ory rate E&M Weight Measured 157.4 [lb_av] weight E& M Weight Measured 157.4 [lb_av] weight E& M Immunizations No information available. Advance Directives Directive Description Start Date POWER OF SALON/SPA MANAGER LIVING WILL ON FILE
--- OUTSIDE RECORDS SUMMARY | 2025-04-03 16:07 | XMS_ITS | Clinical Summary ---
Author Organization [facility] ([place], [place], [place], [place]) Address [address] [place] [address] Care Team Providers Care Training Manager Name Role Phone Unavailable Primary Care Provider Unavailabl e Allergies No known active allergies Medications docusate sodium (COLACE) 100 MG capsule Take 1 capsule (100 mg total) by mouth 2 (two) times daily as needed for Constipation. 3 Active oxyCODONE-acet aminophen (PERCOCET) 5-325 mg per tablet Take 1 tablet by mouth every 6 (six) hours as needed for Pain. 3 Active phenazopyridin e (PYRIDIUM) 200 MG tablet Take 1 tablet (200 mg total) by mouth 3 (three) times daily as needed for Pain. 3 Active albuterol HFA (VENTOLIN HFA) 90 mcg/actuation inhaler Inhale 2 puffs by mouth via inhaler every 6 (six) hours as needed for Wheezing. Active estrogens, conjugated, (PREMARIN) 0.3 MG tablet Take 1 tablet (0.3 mg total) by mouth daily. Active omega 3-ngk-crz-fish oil capsule Take 1 capsule (1,000 mg total) by mouth 2 (two) times daily. Active hydrOXYzine (ATARAX) 25 MG tablet Take 1 tablet (25 mg total) by mouth every 6 (six) hours as needed for Itching or Anxiety. Active metoprolol succinate (TOPROL-XL) 100 MG 24 hr tablet Take 0.5 tablets (50 mg total) by mouth daily. Active QUEtiapine (SEROquel) 300 MG tablet Take 0.5 tablets (150 mg total) by mouth every night as needed (Sleep). Active fexofenadine (BRANNON) 180 MG tablet Take 1 tablet (180 mg total) by mouth daily. Active levETIRAcetam (KEPPRA) 1000 MG tablet Take 1 tablet (1,000 mg total) by mouth 2 (two) times daily. Active omeprazole (PriLOSEC) 20 MG capsule Take 2 capsules (40 mg total) by mouth daily. Active miCAFUNGin (MYCAMINE) IVPB Inject 100 mg intravenously daily. 0 3 Active piperacillin-t azobactam (ZOSYN) injection 3.375 g Inject 13.5 g intravenously every 24 hours by continuous infusion. 1 each 3 Active Active Problems Problem Noted Date Diagnosed Date Pelvic abscess in female 08/23/2023 Social History Tobacco Use Types Packs/Day Years Used Date Smoking Tobacco: Some Days Cigarettes Smokeless Tobacco: Never Tobacco Cessation:Ready to Q uit: Not Asked; Counseling Given: Not Answered Alcohol Use Standard Drinks/Week Comments Not Currently 0 (1 standard drink = 0.6 oz pur e alcohol) PRAPARE - Transportation Answer Date Re corded In the past 12 months, has l ack of transportation kept you from medical appointments or from getting medications? No 08/22/2023 Lack of Transportation (Non-Medical) Not on file 08/22/2023 Food Insecurity Answer Date Recorded Food run out past 12 months Not on file 10/02 Food did not last past 12 months Not on file 10/11/2023 Employment Answer Date Recorded Help finding and keeping a job Not on file 0 10/11/2023 Family and Community Support Answer Douglas e Recorded Help with Day to Day Activities Not on file 10/11/2023 Feeling Lonely or Isolated Not on file 10/11 Educational Attainment Answer Date Perfecto rded Speak language other than Austrian at home Not on file 10/11/2023 Want help with school or training Not on file 10/11/2023 Substance Use Answer Date Recorded Used prescription meds for non-medical reasons N ot on file 10/11/2023 Used illegal drugs past 12 months Not on file 10/11/2023 Comments Unknown Sex and Gender Information Value Date Recorded Sex Assigned at Not on file 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 Gender Identity Not on file Sexual Orientation Not on file Last Filed Vital Signs Vital Sign Reading Time Taken Comments Blood Pressure 141/87 09/05/2023 10:55 AM EST Pulse 71 09/05/2023 10:55 AM EST Temperature 36.6 C (97.9 F) 09/05/2023 10:55 AM EST Respiratory Rate 18 09/05/2023 10:55 AM EST Oxygen Saturation 93% 09/05/2023 10:55 AM EST Inhaled Oxygen Concentration - - Weight 73.9 kg (163 lb) 08/24/2023 4:15 AM EST Height 165.1 cm (5' 5 ) 08/24/2023 4:15 AM EST Body Mass Index 27.12 08/24/2023 4:15 AM EST Plan of Treatment Health Maintenance Due Date Last Done Comments CT Colonography 1966 Colonoscopy 1966 Colorectal Cancer Screening 1966 FOBT/FIT 1966 Fit-DNA (Cologuard) 1966 Sigmoidoscopy 1966 Depression Screening (12+) 1978 HIV Screening 1981 Hepatitis C Screening 1984 Pap Smear 01/01/1988 Lipid Panel 01/01/2012 Shingles Vaccine (Zoster) (1 of 2) 2016 DTAP/TDAP/TD VACCINES (2 - T d or Tdap) 07/10/2018 07/10/2008 Medicare Initial AWV [id number] 11/03/2020 Breast Cancer Screening 06/23/2021 06/23/2019 COVID-19 VACCINE (1 - 2023-2 5 season) 2024 Tobacco Cessation Counseling and Screening (12+) 08/22/2024 08/22/2023 Influenza Vaccine (#1) 2025 , 08/05/2019, 08/03/2018, Additional history exists Pneumococcal 50+ years (3 of 3 - PCV20 or PCV21) 08/23/2026 08/23/2021, 07/01/2013 Insurance MEDICARE PART A B FOR LIFE Advance Directives For more information, please contact: [phone] * Full Code (Latest Code Status on File) Date Activated Date Inactivated Comments 08/22/2023 6:49 PM 09/05/2023 3:50 PM -Attempt Re suscitation if person has no pulse and is not breathing. -If no pulse or not breathing attempt CPR/CODE. -Call Rapid Response if patient is in distress.
--- OUTSIDE RECORDS SUMMARY | 2025-04-03 16:07 | XMS_ITS | Referral Summary ---
Author Organization [facility] [facility] ([place], [place], [place], [place]) Address [address] [place] [address] Care Team Providers Care Literary Writer Name Role Phone Unavailable Primary Care Provider [...] mg total) by mouth daily. 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 -If no pulse or not breathing attempt CPR/CODE. -Call Rapid Response if patient is in distress.
--- OUTSIDE RECORDS SUMMARY | 2025-04-03 16:07 | XMS_ITS | Clinical Summary ---
Author Organization Healthcare Address [address] [place] [address] Care Team Providers Care Manufacturing Engineer Chief Name Role Phone Emily Downing MD Primary Care Provider [phone] Family History Medical History Relation Name Comments Colon cancer Father Diabetes Father Hypertension Father Kidney failure Father Gallbladder disease Mother Hypertension Mother Relation Name Status Comments Father Mother Social History Tobacco Use Types Packs/Day Years Used Date Smoking Tobacco: Former Cigarettes Smokeless Tobacco: Never Tobacco Cessation:Counseling Given: Not Answered Alcohol Use Standard Drinks/Week Comments Yes 0 (1 standard drink = 0.6 oz pure alcohol) Alcoholic Drinks/day: Occasional alcohol use Comments No Sex and Gender Information Value Date Recorded Sex Assigned at Not on file Legal Sex Female 6:04 PM EDT Gender Identity Not on file Sexual Orientation Not on file Last Filed Vital Signs Vital Sign Reading Time Taken Comments Blood Pressure - - Pulse - - Temperature - - Respiratory Rate - - Oxygen Saturation - - Inhaled Oxygen Concentration - - Weight 74.8 kg (165 lb) 05/24/2024 8:33 AM EDT Height 165.1 cm (5' 5 ) 05/24/2024 8:33 AM EDT Body Mass Index 27.46 05/24/2024 8:33 AM EDT Plan of Treatment Upcoming Encounters Date Type Department Care Team (Late st Contact Info) Description 05/27/2025 2:30 PM EDT Appointment [facility] [address] [phone] Health Maintenance Due Date Last Done Comments [facility]-Depression Screening 1966 [facility]-HIV Screening 1966 [facility]-Hepatitis C Screening 1966 [facility]-Medicare Annual Wellness (AWV) 1966 [facility]-Infant/Child/Adol SDOH Screenings 01/01/1967 [facility]-Obesity Intervention 1972 [facility]- SDOH Screenings 1984 [facility]-Adult SDOH Screenings 1984 [facility]-IPV Vaccines (2 of 3 - Adult catch-up series) 05/13/1988 04/15/1988 CT Colonography 01/01/2012 Colonoscopy 01/01/2012 FIT-DNA 01/01/2012 FIT 01/01/2012 FOBT 01/01/2012 Sigmoidoscopy 01/01/2012 [facility]-Colorectal Cancer Screening 01/01/2012 [facility]-Zoster Vaccines (1 of 2) 2016 [facility]-DTaP,Tdap,and Td Vaccines (2 - Td or Tdap) 07/10/2018 07/10/2008, 07/10/2008, 06/26/1998, Additional history exists IGS-IAHRA-67 Vaccine (1 - season) 2024 [facility]-Influenza Vaccine (#1) 06/02/202508/23, 08/05/2019, 08/03/2018, Additional history exists [facility]-Breast Cancer Screening 05/24/2026 05/24/2024, 0 06/24/2019 [facility]-Pneumococcal Vaccine: 50+ Years (3 of 3 - PCV20 or PCV21) 08/23/2026 08/23/2021, 07/01/2013, 07/26/2007 [facility]-Hepatitis A Vaccines Aged Out 10/23/1997, 01/30 No longer eligible based on patient's age to complete this topic [facility]-Hepatitis B Vaccines Completed 002, 05/10/2001, 03/30/2001 HPV Vaccines Aged Out No longer eligi ble based on patient's age to complete this topic [facility]-HIB Vaccines Aged Out No longer e ligible based on patient's age to complete this topic [facility]-Rotavirus Vaccines Aged Out No lo nger eligible based on patient's age to complete this topic Procedures Procedure Name Priority Date/Time Associated Diagnosis Comments MAMMOGRAPHY BREAST DIAGNOSTIC TOMOSYNTHESIS BILATERAL Routine 05/24/2024 8:47 AM EDT Breast pain from Last 3 Months or Most Recently Relevant to Health Maintenance Results * Mammography Breast Diagnostic Tomosynthesis Bilateral (05/24/2024 8:47 AM EDT) Anatomical Region Laterality Modality Breast Bilateral Mammography Impressions 05/24/2024 9:22 AM EDT Right Breast BI-RADS Code: BI-RADS 1, Negative. Left Breast BI-RADS Code: BI-RADS 1, Negative. RECOMMENDATIONS: Right Breast Recommendations: Routine Screening Mammogram in 1 Year Clinical Correlation and Management Left Breast Recommendations: Routine Screening Mammogram in 1 Year CRITICAL RESULT: No. COMMUNICATION: The results and recommendations were discussed with the patient and a printed lay language version of the imaging report was given to the patient at the time of the visit. The mammogram was read with the assistance of CAD and tomosynthesis. Drafted by Lemuel Benoit MD on 05/24/2024 9:19 AM Final report signed by Lemuel Benoit MD on 05/24/2024 9:22 AM Narrative 05/24/2024 9:22 AM EDT CLINICAL INDICATION: Right breast palpable and painful area. TECHNIQUE: Bilateral diagnostic mammogram was performed. Computer assisted detection was used in the interpretation of this study. Tomosynthesis was used in the interpretation of this study. Multiplanar, vinson scale directed ultrasound of the right breast with limited Doppler vascular ultrasound was performed. Elastography was performed. COMPARISON: Mammogram June 24, 2019, November 02, 2016. Bilateral Breast Density: The breast tissue is heterogeneously dense, which may obscure small masses. FINDINGS: Mammogram Findings: No new or suspicious finding bilaterally. Specifically, no focal abnormality in region palpable and painful area right breast. Ultrasound performed to further evaluate. Right Breast Ultrasound Findings: Ultrasound right breast palpable and painful area, 8:00 7 cm from the nipple, shows no suspicious cystic or solid lesion. Elastography: Area of interest was soft on elastography. Procedure Note Lemuel Benoit MD - 05/24/2024 CLINICAL INDICATION: Right breast palpable and painful area. TECHNIQUE: Bilateral diagnostic mammogram was performed. Computer assisted detection was used in the interpretation of this study.Tomosynthesis was used in the interpretation of this study. Multiplanar, vinson scale directed ultrasound of the right breast withlimited Doppler vascular ultrasound was performed. Elastography wasperformed. COMPARISON: Mammogram June 24, 2019, November 02, 2016. Bilateral Breast Density: The breast tissue is heterogeneously dense,which may obscure small masses. FINDINGS: Mammogram Findings: No new or suspicious finding bilaterally.Specifically, no focal abnormality in region palpable and painful arearight breast. Ultrasound performed to further evaluate. Right Breast Ultrasound Findings: Ultrasound right breast palpable andpainful area, 8:00 7 cm from the nipple, shows no suspicious cystic orsolid lesion. Elastography: Area of interest was soft on elastography. IMPRESSION: Right Breast BI-RADS Code: BI-RADS 1, Negative. Left Breast BI-RADS Code: BI-RADS 1, Negative. RECOMMENDATIONS: Right Breast Recommendations: Routine Screening Mammogram in 1 YearClinical Correlation and Management Left Breast Recommendations: Routine Screening Mammogram in 1 Year CRITICAL RESULT: No. COMMUNICATION: The results and recommendations were discussed with the patient and aprinted lay language version of the imaging report was given to thepatient at the time of the visit. The mammogram was read with theassistance of CAD and tomosynthesis. Drafted by Lemuel Benoit MD on 05/24/2024 9:19 AM Final report signed by Lemuel Benoit MD on 05/24/2024 9:22 AM Emily Downing MD IMG BI PROCEDURES Final Resul t from Last 3 Months or Most Recently Relevant to Health Maintenance Insurance MEDICARE [facility] Care Teams Manufacturing Engineer Chief Relationship Specialty Start Date End Date Emily Downing MD [address] [place] [address] PCP - General 02/12/21
[2025-04-03 16:09] LABS: Alanine Aminotransferase 29 U/L (12-78); Albumin/Globulin Ratio 1.5 (1.1-1.8); Alkaline Phosphatase 85 U/L (38-126); Anion Gap 17.0 mEq/L (5-15); Aspartate Amino Transferase 33 U/L (14-36); Bilirubin,Total 0.5 mg/dl (0.2-1.3); Blood Urea Nitrogen 19 mg/dl (7-17); Calcium 9.5 mg/dl (8.4-10.2); Carbon Dioxide 24 mmol/L (22.0-30.0); Creatine Kinase 48 U/L (30-135); Creatinine,Serum 1.00 mg/dl (0.52-1.04); Estimated Glomerular Filt Rate 57 ml/min (>60); GFR (African American) 69 ML/MIN (>60); Globulin 3.0 g/dL (1.3-3.2); Glucose 142 mg/dl (74-100); Magnesium 1.8 mg/dl (1.6-2.3); Total Protein,Serum 7.4 g/dl (6.3-8.2)
[2025-04-03 16:10] LABS: Salicylate < 1.0 mg/dL (2.0-20.0)
[2025-04-03 16:11] LABS: Potassium 3.0 mmoL/L (3.5-5.1)
[2025-04-03 16:12] LABS: Activated Partial Thrombo Time 23.6 seconds (22.8-30.6); INR 0.97 (0.9-1.1); Prothrombin Time 10.8 seconds (10.1-12.5)
--- NOTE | 2025-04-03 16:17 | PC.NURSE ---
72-hour hold paperwork faxed to dispatch
[2025-04-03] MEDS: HALOPERIDOL LACTATE 5 MG/ML VIAL IV (16:21)
[2025-04-03 16:22] LABS: Acetaminophen < 10 ug/ml (10-30); Troponin I < 0.01 ng/ml (0.00-0.034)
[2025-04-03 16:29] LABS: Free T4 (Free Thyroxine) 2.22 ng/dl (0.78-2.19)
--- NOTE | 2025-04-03 16:30 | ECG_ITS ---
APPROVED REPORT Exam: Resting ECG HR:102 bpm ECG Measurements Heart Rate 102 AXES OH 140 P 52 QRSd 98 QRS 15 QT 385 T 47 QTc 444 Conclusion SINUS TACHYCARDIA NONSPECIFIC T-WAVE ABNORMALITY motion artifact no STEMI Electronically signed by : ARNAV MORALES, 04/03/2025 20:48:33
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
--- NOTE | 2025-04-03 16:49 | PC.NURSE ---
1:1 Sitter at bedside to maintain patient safety.
[2025-04-03 16:51] LABS: Microscopic, Urine URINE MICROSCOPIC (MICROSCOPIC)
[2025-04-03 16:53] LABS: Thyroid Stimulating Hormone 0.97 uIU/mL (0.465-4.68)
[2025-04-03 16:53] LABS: VBG HCO3 24.5 mmol/L (23-30); VBG PCO2 40.4 mmol/L (35-51); VBG PH 7.40 mmol/L (7.31-7.41); VBG PO2 53.7 mmol/L (28-40)
[2025-04-03 16:54] LABS: Lactate Venous 2.8 mmol/L (0.4-2.0)
[2025-04-03 17:07] LABS: Amphetamine/Metha Screen,Urine Negative ng/ml (<1000); Barbiturates Screen,Urine Negative ng/ml (<200)
[2025-04-03 17:08] LABS: Benzodiazepines Screen,Urine Positive ng/ml (<200)
[2025-04-03 17:10] LABS: Methadone Screen,Urine Negative ng/ml (<300)
[2025-04-03 17:11] LABS: Opiate Screen,Urine Negative ng/ml (<300); Phencyclidine Screen,Urine Negative ng/ml (<25)
[2025-04-03 17:12] LABS: Ammonia < 9 umol/L (9-30)
[2025-04-03 17:14] LABS: Bilirubin,Urine Negative (Negative); Color,Urine YELLOW (Yellow); Glucose,Urine (UA) Negative (Negative); Ketones,Urine Negative (Negative); Leukocyte Esterase,Urine Negative (Negative); PH,Urine 6.0 (5.0-8.5); Protein,Urine Negative (Negative); Specific Gravity, Urine 1.010 (1.005-1.030); Urobilinogen,Urine 0.2 EU/dl (0.2)
[2025-04-03] MEDS: LACTATED RINGERS 1000ML 1,000 ML 999 ML IV (17:28)
[2025-04-03 17:38] LABS: Bacteria,Urine 4+ /lpf; Mucus,Urine 2+ /lpf; RBC,Urine Occasional #/hpf (0-3); Squamous Epithelial Cell,Urine 20-50 #/hpf (0-5)
[2025-04-03 18:10] LABS: Hepatitis C Ab Qual. W/ RFX NEGATIVE (Negative)
--- NOTE | 2025-04-03 18:22 | PC.NURSE ---
Patient resting quietly in bed, eyes closed, VSS, respirations even and unlabored. 1:1 Sitter remains at bedside to maintain patient safety.
--- NOTE | 2025-04-03 19:00 | PC.NURSE ---
Called [facility], spoke with help desk, got email address to send 72-hour hold paperwork to, and she took patient's information from me.
--- NOTE | 2025-04-03 19:05 | PC.NURSE ---
Patient handoff report given to TAWNYA Arreola.
--- NOTE | 2025-04-03 20:19 | PC.NURSE ---
Spoke with Florian at [facility]. He said approx 1 hr and he will call us back.
[2025-04-03 20:53] LABS: Reflex Lactic Add Lactic Reflex
== END 2025-04-03 23:55 ==
PROVIDERS: Emergency Provider Emergency Medicine
DX: F30.2 Manic episode, severe with psychotic symptoms (principal); R45.850 Homicidal ideations; F14.129 Cocaine abuse with intoxication, unspecified; E87.6 Hypokalemia; R00.0 Tachycardia, unspecified
CPT/HCPCS: 70450; 71045; 80053; 80307; 80320; 80329; 81001; 82140; 82550; 82803; 83735; 84439; 84443; 84484; 85025; 85610; 85730; 86803; 87086; 87389; 93005; 96365; 96366; 96375; 99291; J1630; J3480; J7120